=== PATIENT | male | born 1965 ===

== ENCOUNTER 2017-09-27 11:57 | Emergency (ER) | payer MEDICAID, OTHER ==
[2017-09-27 12:02] VITALS: BP 159/98; PULSE 61; RESP 16; TEMP 97.3; O2SAT 98
[2017-09-27 12:03] VITALS: BMI 29.5
[2017-09-27] MEDS: Sodium Chloride 0.9% 500 ML IV ONE (12:47)
[2017-09-27 13:09] LABS: SQUAMOUS EPITHIAL < 1 /hpf (0-5); URINE BILIRUBIN NEGATIVE (NEGATIVE); URINE BLOOD NEGATIVE (NEGATIVE); URINE CLARITY SLIGHTY-CLOUDY (Clear); URINE COLOR YELLOW (YELLOW); URINE GLUCOSE (UA) NEG (Normal); URINE LEUKOCYTE ESTERASE NEG Leu/uL (Negative); URINE NITRATE NEGATIVE (NEGATIVE); URINE PROTEIN 30 mg/dL (NEGATIVE); URINE UROBILINOGEN 0.2-1.0 mg/dL (0.2-1.0)
--- NOTE | 2017-09-27 13:11 | ED PDOC ---
HPI: Abdomen Time Seen by Provider: 09/27/17 12:12 Chief Complaint (Nursing): Abdominal Pain Chief Complaint (Provider): Abdominal Pain History Per: Patient History/Exam Limitations: no limitations Onset/Duration Of Symptoms: Hrs Current Symptoms Are (Timing): Still Present Additional Complaint(s): Devin Hernandez is a 51 year old male that presents to the ED with a chief complaint of generalized abdominal pain and nausea that began earlier today. Patient reports that he felt nauseous so he self induced vomiting x 4. Patient reports normal bowel movements and normal urination, and denies any fever, cough , chest pain, or shortness of breath. Past Medical History Reviewed: Historical Data, Nursing Documentation, Vital Signs Vital Signs: Last Vital Signs Temp 97.3 F L 09/27/17 12:02 Pulse 61 09/27/17 12:02 Resp 16 09/27/17 12:02 BP 159/98 H 09/27/17 12:02 Pulse Ox 98 09/27/17 15:41 - Medical History PMH: Hypercholesterolemia - Family History Family History: States: Unknown Family Hx - Home Medications Home Medications: Ambulatory Orders Medication Instructions Recorded Ciprofloxacin [Cipro] 500 mg PO BID #20 tab 09/27/17 Metronidazole [Flagyl] 500 mg PO TID #30 tab 09/27/17 - Allergies Allergies/Adverse Reactions: Allergies Allergy/AdvReac Type Severity Reaction Status Date / Time Penicillins Allergy RASH Verified 09/27/17 12:24 Review of Systems Constitutional: Negative for: Fever Cardiovascular: Negative for: Chest Pain Respiratory: Negative for: Cough, Shortness of Breath Gastrointestinal: Positive for: Vomiting, Abdominal Pain. Negative for: Diarrhea, Constipation Genitourinary Male: Negative for: Dysuria, Hematuria Musculoskeletal: Negative for: Neck Pain Physical Exam - Reviewed Nursing Documentation Reviewed: Yes Vital Signs Reviewed: Yes - Physical Exam Appears: Positive for: Non-toxic, No Acute Distress Head Exam: Positive for: ATRAUMATIC, NORMOCEPHALIC Skin: Positive for: Normal Color, Warm Eye Exam: Positive for: EOMI, Normal appearance, PERRL Cardiovascular/Chest: Positive for: Regular Rate, Rhythm. Negative for: Murmur Respiratory: Positive for: Normal Breath Sounds. Negative for: Wheezing Gastrointestinal/Abdominal: Positive for: Soft, Tenderness (scant LLQ) Back: Positive for: Normal Inspection. Negative for: L CVA Tenderness, R CVA Tenderness Neurologic/Psych: Positive for: Alert, Oriented. Negative for: Motor/Sensory Deficits - Laboratory Results Result Diagrams: 09/27/17 13:11 09/27/17 13:11 - ECG O2 Sat by Pulse Oximetry: 98 (RA) Pulse Ox Interpretation: Normal Medical Decision Making Medical Decision Making: Impression: Abdominal Pain/Vomiting Plan: * CT Scan Abd/Pelvis with PO and IV Contrast * CMP * CBC * Lipase * Magnesium * Phosphorous * Urinalysis * Toradol 30 mg IV * Zofran 4 mg IV * NaCl 500 mLs at 500 mLs/hr * Reevaluation CT Scan Abd/Pelvis with PO and IV Contrast FINDINGS: LOWER THORAX: Mild passive atelectasis both posterior lower lung hernandez. No effusion or basilar pneumothorax. There is a tiny hiatal hernia with slight wall thickening of the distal esophagus likely due to protrusion of gastric mucosa. Possibility of esophagitis not excluded. Heart size is borderline/mildly enlarged. No significant pericardial effusion identified. LIVER: . The liver is enlarged measuring nearly 20 cm in CC dimension. Mild to moderate fatty hepatic infiltration. No obvious hepatic mass collection or calcification. Portal and splenic veins are opacified. 19 cm GALLBLADDER AND BILE DUCTS: Gallbladder is physiologically distended. No evidence of intraluminal gallbladder calculi. PANCREAS: Visualized portions of the pancreas appear unremarkable without masses collections calcifications or significant ductal dilatation. . SPLEEN: Spleen is mildly enlarged measuring approximately 14.2 cm in AP dimension. No obvious splenic mass collection or calcification. ADRENALS: . There are no adrenal lesions seen. KIDNEYS AND URETERS: Kidneys demonstrate symmetric nephrograms. No evidence of nephrolithiasis or hydronephrosis. BLADDER: Urinary bladder is physiologically distended. No evidence of intraluminal urinary bladder calculi. REPRODUCTIVE: Prostate gland exhibits normal size with questionable punctate prostatic calcification. Seminal vesicles unremarkable. . . APPENDIX: Normal-appearing appendix best seen on axial image number [id number]. No periappendiceal inflammatory changes. . BOWEL: Relation of the bowel is somewhat limited due to the lack of oral contrast material. The stomach is incompletely distended which may account for slight thick-walled appearance. Visualized loops of small bowel exhibit normal contour and caliber. No evidence of acute mechanical small bowel obstruction. Moderately large amount of stool seen within the cecum and ascending colon suggesting mild localized fecal retention/constipation. Scattered colonic diverticula seen along the distal descending and sigmoid colon. Minor wall thickening short segment of the distal descending/ sigmoid colon nonspecific. Findings could represent mild localized acute diverticulitis. PERITONEUM: Unremarkable. No fluid collection. No free air. Small fat containing umbilical hernia. LYMPH NODES: Unremarkable. No enlarged lymph nodes. VASCULATURE: Unremarkable. No aortic aneurysm. BONES: Minor multilevel degenerative spondylosis of the lower thoracic and lumbar spine. There are no acute compression fractures no retropulsed fragments. . Mild dextroscoliosis. OTHER FINDINGS: None. IMPRESSION: Hepatomegaly with mild fatty hepatic infiltration. Mild splenomegaly. Findings suggest localized constipation involving the cecum and ascending colon. Diverticulosis with minor wall thickening short-segment distal descending/ sigmoid colon ; findings could represent mild localized acute diverticulitis. No evidence of acute appendicitis. See above discussion for additional details and findings. Findings discussed with Dr Ta at 3:25pm Scribe Attestation: Documented by Kasey Subramanian, acting as a scribe for Christine Ta MD. Provider Scribe Attestation: All medical record entries made by the Scribe were at my direction and personally dictated by me. I have reviewed the chart and agree that the record accurately reflects my personal performance of the history, physical exam, medical decision making, and the department course for this patient. I have also personally directed, reviewed, and agree with the discharge instructions and disposition. Used spray mixer- through [facility], to explain to patient his diagnosis. He reports that he feels better and wants to go home. He has never had any non- self induced vomiting. He is afebrile with normal labs. He reports that he wants to try outpatient antibiotics and will return with any worsening symptoms. Disposition - Clinical Impression Clinical Impression: Diverticulitis - Disposition Referrals: [facility] [Outside] Disposition: Routine/Home Disposition Time: 15:34 Condition: GOOD Additional Instructions: Follow-up with PMD within 2 days. Take full course of antibiotics. Return to ED immediately with any worsening symptoms. Prescriptions: Ciprofloxacin [Cipro] 500 mg PO BID #20 tab Metronidazole [Flagyl] 500 mg PO TID #30 tab Instructions: Diverticulitis (ED) Forms: [facility] (Nigerian) Print Language: SAMMARINESE
[2017-09-27 13:20] LABS: BASO % 0.7 % (0.0-2.0); EOS # 0.2 K/uL (0.0-0.7); EOS % 2.7 % (0.0-4.0); HEMOGLOBIN 15.2 g/dL (12.0-18.0); LYMPH # 2.2 K/uL (1.0-4.3); MEAN CELL VOLUME 83.5 fl (80.0-94.0); MEAN CORPUSCULAR HEMOGLOBIN 28.7 pg (27.0-31.0); MEAN CORPUSCULAR HGB CONC 34.3 g/dL (33.0-37.0); MEAN PLATELET VOLUME 7.4 fl (7.2-11.7); MONO # 0.5 K/uL (0.0-0.8); MONO % 7.8 % (0.0-10.0); NEUT # 3.6 K/uL (1.8-7.0); NEUT % 55.8 % (50.0-75.0); NRBC % 0.3 % (0.0-0.0); RBC 5.31 Mil/uL (4.40-5.90); RED CELL DISTRIBUTION WIDTH 12.5 % (11.5-14.5); WHITE BLOOD COUNT 6.5 K/uL (4.8-10.8)
[2017-09-27 13:42] LABS: ALB/GLOB RATIO 1.2 (1.0-2.1); ALBUMIN 4.2 g/dL (3.5-5.0); ALT/SGPT 66 U/L (21-72); AST/SGOT 39 U/L (17-59); BLOOD UREA NITROGEN 16 mg/dl (9-20); CALCIUM 9.3 mg/dL (8.4-10.2); GFR AFRICAN-AMERICAN > 60; GFR NON-AFRICAN AMERICAN > 60; LIPASE 70 U/L (23-300); MAGNESIUM 1.7 MG/DL (1.6-2.3)
[2017-09-27] MEDS ORDERED: Sodium Chloride 0.9% 50 ML IV ONE (14:08)
[2017-09-27] MEDS ORDERED: Iohexol 300 100 ML IJ ONE (14:08)
--- NOTE | 2017-09-27 15:29 | CT ---
PROCEDURE: CT scan abdomen and pelvis dated 09/27/2017 HISTORY: Diffuse abdominal pain COMPARISON: None. TECHNIQUE: Contiguous axial images of the abdomen and pelvis performed the following intravenous injection of approximately 95 cc Omnipaque 300 en. Coronal and Sagittal reformats generated. This CT exam was performed using one or more of the following dose reduction techniques: Automated exposure control, adjustment of the mA and/or kV according to patient size, and/or use of iterative reconstruction technique. Radiation dose: Total exam DLP = 979.98 mGy-cm. FINDINGS: LOWER THORAX: Mild passive atelectasis both posterior lower lung hernandez. No effusion or basilar pneumothorax. There is a tiny hiatal hernia with slight wall thickening of the distal esophagus likely due to protrusion of gastric mucosa. Possibility of esophagitis not excluded. Heart size is borderline/mildly enlarged. No significant pericardial effusion identified. LIVER: . The liver is enlarged measuring nearly 20 cm in CC dimension. Mild to moderate fatty hepatic infiltration. No obvious hepatic mass collection or calcification. Portal and splenic veins are opacified. 19 cm GALLBLADDER AND BILE DUCTS: Gallbladder is physiologically distended. No evidence of intraluminal gallbladder calculi. PANCREAS: Visualized portions of the pancreas appear unremarkable without masses collections calcifications or significant ductal dilatation. . SPLEEN: Spleen is mildly enlarged measuring approximately 14.2 cm in AP dimension. No obvious splenic mass collection or calcification. ADRENALS: . There are no adrenal lesions seen. KIDNEYS AND URETERS: Kidneys demonstrate symmetric nephrograms. No evidence of nephrolithiasis or hydronephrosis. BLADDER: Urinary bladder is physiologically distended. No evidence of intraluminal urinary bladder calculi. REPRODUCTIVE: Prostate gland exhibits normal size with questionable punctate prostatic calcification. Seminal vesicles unremarkable. . . APPENDIX: Normal-appearing appendix best seen on axial image number [id number]. No periappendiceal inflammatory changes. . BOWEL: Relation of the bowel is somewhat limited due to the lack of oral contrast material. The stomach is incompletely distended which may account for slight thick-walled appearance. Visualized loops of small bowel exhibit normal contour and caliber. No evidence of acute mechanical small bowel obstruction. Moderately large amount of stool seen within the cecum and ascending colon suggesting mild localized fecal retention/constipation. Scattered colonic diverticula seen along the distal descending and sigmoid colon. Minor wall thickening short segment of the distal descending/ sigmoid colon nonspecific. Findings could represent mild localized acute diverticulitis. PERITONEUM: Unremarkable. No fluid collection. No free air. Small fat containing umbilical hernia. LYMPH NODES: Unremarkable. No enlarged lymph nodes. VASCULATURE: Unremarkable. No aortic aneurysm. BONES: Minor multilevel degenerative spondylosis of the lower thoracic and lumbar spine. There are no acute compression fractures no retropulsed fragments. . Mild dextroscoliosis. OTHER FINDINGS: None. IMPRESSION: Hepatomegaly with mild fatty hepatic infiltration. Mild splenomegaly. Findings suggest localized constipation involving the cecum and ascending colon. Diverticulosis with minor wall thickening short-segment distal descending/sigmoid colon ; findings could represent mild localized acute diverticulitis. No evidence of acute appendicitis. See above discussion for additional details and findings. Findings discussed with Dr Ta at 3:25pm
== END 2017-09-27 16:24 | disposition home or self-care (01) ==
LOC: H.ER 11:57
DX: K57.92 Diverticulitis of intestine, part unspecified, without perforation or abscess without bleeding (principal); E78.00 Pure hypercholesterolemia, unspecified; Z88.0 Allergy status to penicillin
CPT/HCPCS: 74177; 80053; 81003; 83690; 83735; 84100; 85025; 96374; 96375; 99282; J1885; J2405; J7040; Q9967

== ENCOUNTER 2018-04-10 22:35 | Emergency (ER) | payer MEDICAID, OTHER ==
[2018-04-10 22:35] VITALS: BMI 29.5
[2018-04-10 22:50] VITALS: RESP 16
[2018-04-10] MEDS ORDERED: Iohexol 240 (50 ml) PO ONE (23:30)
[2018-04-10] MEDS ORDERED: Sodium Chloride 0.9% 1,000 ML IV STA (23:30)
--- NOTE | 2018-04-10 23:33 | ED PDOC ---
HPI: Abdomen Time Seen by Provider: 04/10/18 22:51 Chief Complaint (Nursing): Abdominal Pain Chief Complaint (Provider): abdominal pain History Per: Patient History/Exam Limitations: no limitations Onset/Duration Of Symptoms: Hrs Current Symptoms Are (Timing): Still Present Location Of Pain/Discomfort: RUQ, Epigastric, LUQ Quality Of Discomfort: Cramping, "Pain" Associated Symptoms: Diarrhea Additional Complaint(s): 52 y/o male presents for evaluation of severe upper abdominal pain x 5 hours. Associated diarrhea x 3 days. Patient evaluated by his PMD yesterday and was prescribed Bentyl which is not helping with pain. Denies fever, nausae/vomiting , chest pain, shortness of breath, palpitations, urinary symptoms, recent travel , sick contacts. Past Medical History Reviewed: Historical Data, Nursing Documentation, Vital Signs Vital Signs: Last Vital Signs Temp 97.6 F 04/10/18 22:47 Pulse 62 04/10/18 22:47 Resp 16 04/10/18 22:47 BP 163/96 H 04/10/18 22:47 Pulse Ox 98 04/10/18 23:33 - Medical History PMH: Hypercholesterolemia - Family History Family History: States: Unknown Family Hx - Home Medications Home Medications: Ambulatory Orders Medication Instructions Recorded Ciprofloxacin [Cipro] 500 mg PO BID #20 tab 09/27/17 Metronidazole [Flagyl] 500 mg PO TID #30 tab 09/27/17 Ciprofloxacin HCl [Cipro] 500 mg PO BID #19 tab 04/11/18 Metronidazole [Flagyl] 500 mg PO TID #29 tablet 04/11/18 Naproxen [Naprosyn] 500 mg PO Q12 PRN #20 tablet 04/11/18 - Allergies Allergies/Adverse Reactions: Allergies Allergy/AdvReac Type Severity Reaction Status Date / Time Penicillins Allergy RASH Verified 09/27/17 12:24 Review of Systems ROS Statement: Except As Marked, All Systems Reviewed And Found Negative Gastrointestinal: Positive for: Abdominal Pain, Diarrhea Physical Exam - Reviewed Nursing Documentation Reviewed: Yes Vital Signs Reviewed: Yes - Physical Exam Appears: Positive for: Well, Non-toxic, No Acute Distress Head Exam: Positive for: ATRAUMATIC, NORMAL INSPECTION, NORMOCEPHALIC Skin: Positive for: Normal Color Eye Exam: Positive for: Normal appearance ENT: Positive for: Normal ENT Inspection Cardiovascular/Chest: Positive for: Regular Rate, Rhythm Respiratory: Positive for: Normal Breath Sounds Gastrointestinal/Abdominal: Positive for: Bowel Sounds, Soft, Tenderness ( diffuse upper abdominal tenderness) Back: Positive for: Normal Inspection Extremity: Positive for: Normal ROM Neurologic/Psych: Positive for: Alert, Oriented - Laboratory Results Result Diagrams: 04/11/18 00:28 04/11/18 00:28 - ECG O2 Sat by Pulse Oximetry: 98 - Progress ED Course And Treament: Initial Impression: abdominal pain, diarrhea Plan: cbc cmp lipase urine ct abd/pelvis po/iv contrast toradol fluids EXAM: CT Abdomen and Pelvis With Intravenous Contrast EXAM DATE/TIME: 04/10/2018 11:30 PM CLINICAL HISTORY: 52 years old, male; Pain; Abdominal pain; Localized; Upper; Additional info: Upper abd pain, diarrhea TECHNIQUE: Axial computed tomography images of the abdomen and pelvis with intravenous contrast. All CT scans at this facility use at least one of these dose optimization techniques: automated exposure control; mA and/or kV adjustment per patient size (includes targeted exams where dose is matched to clinical indication); or iterative reconstruction. CONTRAST: 95 ml of [id number] administered intravenously. COMPARISON: No relevant prior studies available. FINDINGS: Lower thorax: Mild dependent atelectatic changes in the lungs. ABDOMEN: Liver: Fatty liver. Gallbladder and bile ducts: Normal. No calcified stones. No ductal dilation. Pancreas: Normal. No ductal dilation. Spleen: The spleen is enlarged measuring up to 14.5 cm in AP dimension. Adrenals: Normal. No mass. Kidneys and ureters: Normal. No hydronephrosis. Stomach and bowel: Mild thickening of the sigmoid colon may be reflective of colitis. Appendix: No evidence of appendicitis. PELVIS: Bladder: Unremarkable as visualized. Reproductive: Unremarkable as visualized. ABDOMEN and PELVIS: Intraperitoneal space: Normal. No free air. No significant fluid collection. Bones/joints: No acute fracture. No dislocation. Soft tissues: Unremarkable. Vasculature: Normal. No abdominal aortic aneurysm. Lymph nodes: Normal. No enlarged lymph nodes. IMPRESSION: 1. Mild thickening of the sigmoid colon may be reflective of colitis. 2. Fatty liver. 3. The spleen is enlarged measuring up to 14.5 cm in AP dimension. Patient evaluated by ED attending Dr. Tong; patient without LUQ tenderness, likely incidental finding of splenomegaly Patient educated on findings, discharged with rx cipro (dose given in ED), flagyl (dose given in ED), naproxen Advised to continue Bentyl Rice diet. Fluids Patient has appt to see GI next week. Advised to f/up as scheduled Return precautions given Disposition - Clinical Impression Clinical Impression: Colitis, Splenomegaly - Patient ED Disposition Is Patient to be Admitted: No Counseled Patient/Family Regarding: Studies Performed, Diagnosis, Need For Followup, Rx Given - Disposition Disposition: Routine/Home Disposition Time: 04:58 Condition: IMPROVED Prescriptions: Ciprofloxacin HCl [Cipro] 500 mg PO BID #19 tab Metronidazole [Flagyl] 500 mg PO TID #29 tablet Naproxen [Naprosyn] 500 mg PO Q12 PRN #20 tablet PRN Reason: Pain, Moderate (4-7) Instructions: Diarrhea in Adolescents and Adults, Acute Abdomen (Belly Pain) Forms: [facility] (Czech) Print Language: HONG KONGER
[2018-04-11] MEDS ORDERED: Iohexol 240 (50 ml) ONE (00:12)
[2018-04-11 00:32] LABS: BASO # 0.1 K/uL (0.0-0.2); BASO % 0.7 % (0.0-2.0); EOS # 0.4 K/uL (0.0-0.7); EOS % 4.9 % (0.0-4.0); HEMOGLOBIN 15.3 g/dL (12.0-18.0); LYMPH # 2.6 K/uL (1.0-4.3); LYMPH % 35.9 % (20.0-40.0); MEAN CELL VOLUME 84.4 fl (80.0-94.0); MEAN CORPUSCULAR HEMOGLOBIN 29.1 pg (27.0-31.0); MEAN CORPUSCULAR HGB CONC 34.4 g/dL (33.0-37.0); MEAN PLATELET VOLUME 6.9 fl (7.2-11.7); MONO # 0.8 K/uL (0.0-0.8); MONO % 10.8 % (0.0-10.0); NEUT # 3.4 K/uL (1.8-7.0); NEUT % 47.7 % (50.0-75.0); RBC 5.27 Mil/uL (4.40-5.90); RED CELL DISTRIBUTION WIDTH 12.7 % (11.5-14.5); WHITE BLOOD COUNT 7.2 K/uL (4.8-10.8)
[2018-04-11 00:36] LABS: URINE BILIRUBIN NEGATIVE (NEGATIVE); URINE BLOOD NEGATIVE (NEGATIVE); URINE CLARITY CLEAR (Clear); URINE COLOR STRAW (YELLOW); URINE GLUCOSE (UA) NEG (Normal); URINE LEUKOCYTE ESTERASE NEG Leu/uL (Negative); URINE PROTEIN NEGATIVE (NEGATIVE); URINE UROBILINOGEN 0.2-1.0 mg/dL (0.2-1.0)
[2018-04-11 00:43] LABS: ALB/GLOB RATIO 1.2 (1.0-2.1); ALBUMIN 4.3 g/dL (3.5-5.0); ALT/SGPT 52 U/L (21-72); AST/SGOT 34 U/L (17-59); BLOOD UREA NITROGEN 13 mg/dl (9-20); CALCIUM 9.2 mg/dL (8.4-10.2); GFR AFRICAN-AMERICAN > 60; GFR NON-AFRICAN AMERICAN > 60; LIPASE 90 U/L (23-300)
[2018-04-11] MEDS ORDERED: Sodium Chloride 0.9% 50 ML IV ONE (02:30)
[2018-04-11] MEDS ORDERED: Iohexol 300 100 ML IJ ONE (02:30)
[2018-04-11 05:57] VITALS: BP 125/81; PULSE 56; TEMP 98.6; O2SAT 97
--- NOTE | 2018-04-11 11:06 | CT ---
Date of service: 04/11/2018 PROCEDURE: CT Abdomen and Pelvis with contrast HISTORY: upper abd pain, diarrhea COMPARISON: CT scan of the abdomen pelvis dated 09/17/2017. TECHNIQUE: Contrast dose: 90 mL Omnipaque 300 Radiation dose: Total exam DLP = 819.2 mGy-cm. This CT exam was performed using one or more of the following dose reduction techniques: Automated exposure control, adjustment of the mA and/or kV according to patient size, and/or use of iterative reconstruction technique. FINDINGS: LOWER THORAX: Unremarkable. LIVER: Hepatic steatosis with heterogeneous attenuation involving the right hepatic, likely related to transient hepatic attenuation differences. No gross lesion or ductal dilatation. GALLBLADDER AND BILE DUCTS: Unremarkable. PANCREAS: Unremarkable. No gross lesion or ductal dilatation. SPLEEN: Unremarkable. ADRENALS: Unremarkable. No mass. KIDNEYS AND URETERS: Unremarkable. No hydronephrosis. No solid mass. VASCULATURE: Unremarkable. No aortic aneurysm. BOWEL: Unremarkable. No obstruction. No gross mural thickening. APPENDIX: Normal appendix. PERITONEUM: Tiny fat containing umbilical hernia. Small fat containing right inguinal hernia. No free fluid. No free air. LYMPH NODES: Unremarkable. No enlarged lymph nodes. BLADDER: Unremarkable. REPRODUCTIVE: Unremarkable. BONES: No acute fracture. OTHER FINDINGS: None. IMPRESSION: No acute abdominal pelvic pathology. Hepatic steatosis with likely transient hepatic attenuation differences. Additional findings as above.
--- NOTE | 2018-04-14 11:41 | CARD ---
APPROVED REPORT Date of service: 04/10/2018 EKG Measurement Heart [id number] <Conclusion> Normal sinus rhythm Normal ECG
== END 2018-04-11 05:59 | disposition home or self-care (01) ==
LOC: H.ER 22:35
DX: K52.9 Noninfective gastroenteritis and colitis, unspecified (principal); R16.1 Splenomegaly, not elsewhere classified; E78.00 Pure hypercholesterolemia, unspecified; K76.0 Fatty (change of) liver, not elsewhere classified; Z88.0 Allergy status to penicillin
CPT/HCPCS: 74177; 80053; 81003; 83690; 85025; 93005; 96361; 96374; 96375; 99283; J1885; J7030; Q9966; Q9967

== ENCOUNTER 2018-04-29 03:49 | Inpatient (IN) | payer MEDICAID ==
[2018-04-29 03:49] VITALS: BMI 29.5
[2018-04-29] MEDS ORDERED: Simethicone 80 mg Chewtab PO STA (05:15)
[2018-04-29] MEDS ORDERED: Sodium Chloride 0.9% 1,000 ML IV STA (05:15)
--- NOTE | 2018-04-29 05:38 | ED PDOC ---
HPI: Abdomen Time Seen by Provider: 04/29/18 05:10 Chief Complaint (Nursing): Abdominal Pain Chief Complaint (Provider): Abdominal Pain History Per: Patient History/Exam Limitations: no limitations Additional Complaint(s): Patient is a 52 y/o male who was recently diagnosed with diverticulitis who presents to the ED complaining of abdominal pain with associated episodes of vomiting and diarrhea, both non-bloody. Patient reports that he had a colonoscopy yesterday at [facility] and his results were negative. However , patient states that since the procedure he has been feeling more and more bloated. He denies any fever or urinary symptoms. Past Medical History Reviewed: Historical Data, Nursing Documentation, Vital Signs Vital Signs: Last Vital Signs Temp 99 F 04/29/18 04:07 Pulse 69 04/29/18 04:07 Resp 14 04/29/18 04:07 BP 150/91 H 04/29/18 04:07 Pulse Ox 99 04/29/18 05:42 - Medical History PMH: Diverticulitis, Hypercholesterolemia - Surgical History Other surgeries: colonoscopy - Family History Family History: States: Unknown Family Hx - Home Medications Home Medications: Ambulatory Orders Medication Instructions Recorded Ciprofloxacin [Cipro] 500 mg PO BID #20 tab 09/27/17 Metronidazole [Flagyl] 500 mg PO TID #30 tab 09/27/17 Ciprofloxacin HCl [Cipro] 500 mg PO BID #19 tab 04/11/18 Metronidazole [Flagyl] 500 mg PO TID #29 tablet 04/11/18 Naproxen [Naprosyn] 500 mg PO Q12 PRN #20 tablet 04/11/18 - Allergies Allergies/Adverse Reactions: Allergies Allergy/AdvReac Type Severity Reaction Status Date / Time amoxicillin Allergy RASH Verified 04/29/18 04:07 Penicillins Allergy RASH Verified 04/29/18 04:07 Review of Systems ROS Statement: Except As Marked, All Systems Reviewed And Found Negative Constitutional: Negative for: Fever Gastrointestinal: Positive for: Vomiting, Abdominal Pain, Diarrhea Genitourinary Male: Negative for: Dysuria, Frequency, Incontinence Physical Exam - Reviewed Nursing Documentation Reviewed: Yes Vital Signs Reviewed: Yes - Physical Exam Appears: Positive for: Non-toxic, No Acute Distress Head Exam: Positive for: ATRAUMATIC, NORMOCEPHALIC Skin: Positive for: Normal Color, Warm, Dry Eye Exam: Positive for: EOMI, Normal appearance, PERRL Neck: Positive for: Normal, Painless ROM, Supple Cardiovascular/Chest: Positive for: Regular Rate, Rhythm. Negative for: Murmur Respiratory: Positive for: Normal Breath Sounds. Negative for: Respiratory Distress Gastrointestinal/Abdominal: Positive for: Soft, Tenderness (diffuse tenderness) , Distended. Negative for: Guarding, Rebound Back: Positive for: Normal Inspection. Negative for: L CVA Tenderness, R CVA Tenderness Extremity: Positive for: Normal ROM. Negative for: Pedal Edema, Deformity Neurologic/Psych: Positive for: Alert, Oriented. Negative for: Motor/Sensory Deficits - Laboratory Results Result Diagrams: 04/29/18 05:32 04/29/18 05:32 - ECG O2 Sat by Pulse Oximetry: 99 (RA) Pulse Ox Interpretation: Normal Medical Decision Making Medical Decision Making: Time: 05:14 A/P: 52 y/o male with history of recent diverticulitis and colonoscopy presenting with abdominal pain. Patient is not in acute distress but uncomfortably appearing. Concerned for possible gas vs complication of colonoscopy vs worsening diverticulitis among other pathologies. --CMP --Lactic acid --Lipase --CBC with differential --RAD - obstructive series --Mylicon 80 mg PO --Urinalysis 0700 Patient states he feels the same. Will order CT A/P with PO and IV contrast, toradol ordered. Will endorse to Dr. Hughes pending CT and re-eval. ----- Scribe Attestation: Documented by Landon Redman, acting as a scribe for Ken Tong MD. Provider Scribe Attestation: All medical record entries made by the Scribe were at my direction and personally dictated by me. I have reviewed the chart and agree that the record accurately reflects my personal performance of the history, physical exam, medical decision making, and the department course for this patient. I have also personally directed, reviewed, and agree with the discharge instructions and disposition. Disposition - Clinical Impression Clinical Impression: Abdominal pain - Patient ED Disposition Is Patient to be Admitted: Transfer of Care - Disposition Disposition: Transfer of Care Disposition Time: 07:00 Condition: STABLE Forms: [facility] (Haitian) Patient Signed Over To: Abhay Hughes Handoff Comments: pending CT and re-eval
[2018-04-29 06:08] LABS: BASO % 0.7 % (0.0-2.0); EOS # 0.2 K/uL (0.0-0.7); EOS % 3.4 % (0.0-4.0); HEMOGLOBIN 15.3 g/dL (12.0-18.0); LYMPH # 1.8 K/uL (1.0-4.3); LYMPH % 24.9 % (20.0-40.0); MEAN CELL VOLUME 85.8 fl (80.0-94.0); MEAN CORPUSCULAR HEMOGLOBIN 29.8 pg (27.0-31.0); MEAN CORPUSCULAR HGB CONC 34.8 g/dL (33.0-37.0); MEAN PLATELET VOLUME 7.2 fl (7.2-11.7); MONO # 0.6 K/uL (0.0-0.8); MONO % 8.1 % (0.0-10.0); NEUT # 4.5 K/uL (1.8-7.0); NEUT % 62.9 % (50.0-75.0); NRBC % 0.1 % (0.0-0.0); RBC 5.12 Mil/uL (4.40-5.90); RED CELL DISTRIBUTION WIDTH 12.9 % (11.5-14.5); WHITE BLOOD COUNT 7.2 K/uL (4.8-10.8)
[2018-04-29 06:22] LABS: ALB/GLOB RATIO 1.2 (1.0-2.1); ALBUMIN 4.1 g/dL (3.5-5.0); ALT/SGPT 62 U/L (21-72); AST/SGOT 44 U/L (17-59); BLOOD UREA NITROGEN 15 mg/dl (9-20); CALCIUM 9.3 mg/dL (8.4-10.2); GFR AFRICAN-AMERICAN > 60; GFR NON-AFRICAN AMERICAN > 60; LIPASE 68 U/L (23-300)
[2018-04-29] MEDS ORDERED: Iohexol 240 (50 ml) PO ONE (06:42)
[2018-04-29] MEDS ORDERED: Iohexol 240 (50 ml) ONE (06:58)
--- NOTE | 2018-04-29 07:27 | ED PDOC ---
- Laboratory Results Result Diagrams: 04/29/18 05:32 04/29/18 05:32 Interpretation Of Abn Labs: no acute - ECG O2 Sat by Pulse Oximetry: 99 (RA) Pulse Ox Interpretation: Normal - CT Scan/US ct Other Rad Studies (CT/US): Read By Radiologist Other Rad Interpretation: gall bladder thickening and fluid around; colitis US Other Rad Studies (CT/US): Read By Radiologist Other Rad Interpretation: cholecystitis - Progress ED Course And Treament: 1230: Stable. AAOx3. Will need admit. Surgery aware and seeing pt. Spoke with Dr. Funes. Will admit. Medical Decision Making Medical Decision Makin:00 --52 year old male signed out pending CT Abd & Pelvis and reevaluation; had colonoscopy performed 2 days ago. 09:57 CT Abd Pelvis FINDINGS: LOWER THORAX: There is dependent atelectasis in the lung bases. There is a tiny calcified granuloma in the right lower lobe. LIVER: There is mild hepatomegaly and diffuse fatty liver. No gross lesion or ductal dilatation. GALLBLADDER AND BILE DUCTS: The gallbladder is distended with wall thickening and pericholecystic fluid. No calcified gallstones. PANCREAS: The pancreas is normal in size with homogeneous enhancement. No gross lesion or ductal dilatation. SPLEEN: Mild splenomegaly. ADRENALS: No discrete nodule. KIDNEYS AND URETERS: Normal in size with homogeneous enhancement. No hydronephrosis. No solid mass. VASCULATURE: No aortic aneurysm. BOWEL: The small bowel loops are normal in caliber. The ascending and transverse colon is normal in appearance. There is scattered left colonic diverticulosis. There is apparent mild mural thickening in the descending and sigmoid colon. No bowel dilatation or obstruction. APPENDIX: Normal appendix. PERITONEUM: No free fluid. No free air. LYMPH NODES: No enlarged lymph nodes. BLADDER: Over distended and grossly normal in appearance. REPRODUCTIVE: The prostate gland is normal in size. BONES: No acute fracture. Mild multilevel degenerative disc disease. OTHER FINDINGS: There are bilateral small fat containing inguinal hernias. IMPRESSION: 1. Distended gallbladder with wall thickening and mild pericholecystic fluid without evidence for calcified gallstones. Findings could represent acute cholecystitis in the appropriate clinical setting. Please correlate with clinical symptoms and if clinically indicated with right upper quadrant ultrasound. 2. Scattered left colonic diverticulosis. Apparent mild mural thickening in the descending and sigmoid colon is nonspecific and could be related to underdistention however early nonspecific infectious/inflammatory colitis cannot be excluded. Clinical follow-up is advised. 3. Mild hepatosplenomegaly and fatty liver. Scribe Attestation: Documented by Sarah Robbins, acting as a scribe for Abhay Hughes MD Provider Scribe Attestation: All medical record entries made by the Scribe were at my direction and personally dictated by me. I have reviewed the chart and agree that the record accurately reflects my personal performance of the history, physical exam, medical decision making, and the department course for this patient. I have also personally directed, reviewed, and agree with the discharge instructions and disposition. Disposition - Clinical Impression Clinical Impression: Colitis, Cholecystitis - POA Present On Arrival: None - Disposition Disposition: Admitted as In-Patient Disposition Time: 11:00 Condition: FAIR
[2018-04-29 08:31] LABS: SQUAMOUS EPITHIAL < 1 /hpf (0-5); URINE BILIRUBIN NEGATIVE (NEGATIVE); URINE BLOOD NEGATIVE (NEGATIVE); URINE CLARITY CLEAR (Clear); URINE COLOR YELLOW (YELLOW); URINE GLUCOSE (UA) NEG (Normal); URINE LEUKOCYTE ESTERASE NEG Leu/uL (Negative); URINE PROTEIN NEGATIVE (NEGATIVE); URINE UROBILINOGEN 0.2-1.0 mg/dL (0.2-1.0)
[2018-04-29] MEDS ORDERED: Sodium Chloride 0.9% 50 ML IV ONE (09:04)
[2018-04-29] MEDS ORDERED: Iohexol 300 100 ML IJ ONE (09:04)
--- NOTE | 2018-04-29 09:58 | CT ---
Date of service: 04/29/2018 PROCEDURE: CT Abdomen and Pelvis with contrast HISTORY: Abdominal pain after colonoscopy COMPARISON: 04/11/2018. TECHNIQUE: CT scan of the abdomen and pelvis was performed after administration of intravenous contrast. Oral contrast was administered. Coronal and sagittal reformatted images were obtained. Contrast dose: 95 mL Omnipaque 300 Radiation dose: Total exam DLP = 742.84 mGy-cm. This CT exam was performed using one or more of the following dose reduction techniques: Automated exposure control, adjustment of the mA and/or kV according to patient size, and/or use of iterative reconstruction technique. FINDINGS: LOWER THORAX: There is dependent atelectasis in the lung bases. There is a tiny calcified granuloma in the right lower lobe. LIVER: There is mild hepatomegaly and diffuse fatty liver. No gross lesion or ductal dilatation. GALLBLADDER AND BILE DUCTS: The gallbladder is distended with wall thickening and pericholecystic fluid. No calcified gallstones. PANCREAS: The pancreas is normal in size with homogeneous enhancement. No gross lesion or ductal dilatation. SPLEEN: Mild splenomegaly. ADRENALS: No discrete nodule. KIDNEYS AND URETERS: Normal in size with homogeneous enhancement. No hydronephrosis. No solid mass. VASCULATURE: No aortic aneurysm. BOWEL: The small bowel loops are normal in caliber. The ascending and transverse colon is normal in appearance. There is scattered left colonic diverticulosis. There is apparent mild mural thickening in the descending and sigmoid colon. No bowel dilatation or obstruction. APPENDIX: Normal appendix. PERITONEUM: No free fluid. No free air. LYMPH NODES: No enlarged lymph nodes. BLADDER: Over distended and grossly normal in appearance. REPRODUCTIVE: The prostate gland is normal in size. BONES: No acute fracture. Mild multilevel degenerative disc disease. OTHER FINDINGS: There are bilateral small fat containing inguinal hernias. IMPRESSION: 1. Distended gallbladder with wall thickening and mild pericholecystic fluid without evidence for calcified gallstones. Findings could represent acute cholecystitis in the appropriate clinical setting. Please correlate with clinical symptoms and if clinically indicated with right upper quadrant ultrasound. 2. Scattered left colonic diverticulosis. Apparent mild mural thickening in the descending and sigmoid colon is nonspecific and could be related to underdistention however early nonspecific infectious/inflammatory colitis cannot be excluded. Clinical follow-up is advised. 3. Mild hepatosplenomegaly and fatty liver.
--- NOTE | 2018-04-29 10:55 | RAD ---
Date of service: 04/29/2018 PROCEDURE: Radiographs of the chest and abdomen (obstructive series) HISTORY: colonoscopy yesterday, abd pain COMPARISON: Abdomen pelvis CT examination 04/11/2018. TECHNIQUE: AP radiograph of the chest, with upright and supine radiographs of the abdomen. FINDINGS: CHEST: Lungs: No acute pulmonary disease appreciated bilaterally. Cardiovascular: Normal size heart. No pulmonary vascular congestion. Pleura: No pleural fluid. No pneumothorax. Other findings: None. ABDOMEN AND PELVIS: Bowel: Unremarkable bowel gas pattern. No evidence of mechanical obstruction. Limited fecal loading is seen in the interval though diminished compared to the prior CT 04/11/2018. Free air: None. Bones: Unremarkable. Other findings: None. IMPRESSION: Unremarkable radiographs of chest and abdomen. No radiographic evidence of mechanical bowel obstruction.
--- NOTE | 2018-04-29 12:20 | US ---
Date of service: 04/29/2018 HISTORY: gall bladder eval; pain COMPARISON: None. TECHNIQUE: Sonographic evaluation of the right upper quadrant of the abdomen. FINDINGS: LIVER: Measures 15.8 cm in length. There is diffuse increased echogenicity of the liver parenchyma. No mass. No intrahepatic bile duct dilatation. GALLBLADDER: The gallbladder is distended. There are multiple gallstones and mild pericholecystic fluid along wall. COMMON BILE DUCT: Measures 4.0 mm. No stones. No dilatation. PANCREAS: Obscured by bowel gas. No mass. No ductal dilatation. RIGHT KIDNEY: Measures 11.1 cm in length. Normal echogenicity. No calculus, mass, or hydronephrosis. AORTA: No aneurysmal dilatation. IVC: Unremarkable. OTHER FINDINGS: None . IMPRESSION: Distended gallbladder with gallstones and mild pericholecystic fluid in the appropriate clinical setting could represent acute calculus cholecystitis. Diffuse increased echogenicity in the liver may reflect hepatic steatosis however parenchymal infectious/ inflammatory etiologies cannot be entirely excluded. Clinical and laboratory correlation is advised.
[2018-04-29] MEDS ORDERED: metroNIDAZOLE 500mg/100ml NS 100 ML IV STA (12:32)
[2018-04-29] MEDS ORDERED: cefTRIAXone (Rocephin) 1 gm Inj IV ONE (12:33)
[2018-04-29] MEDS ORDERED: metroNIDAZOLE 500mg/100ml NS 100 ML IVPB ONE (12:58)
[2018-04-29] MEDS ORDERED: cefTRIAXone (Rocephin) 1 gm Inj ONE (12:58)
--- NOTE | 2018-04-29 13:26 | CP.PCM.CON ---
History of Present Illness - History of Present Illness History of Present Illness: General surgery consult note for Dr. Matthew Castillo, PGY-2 Pt S & E at bedside at 1250 52M w/PMH sig for colitis/diverticulitis consulted for cholecystitis. Pt reports colonoscopy yesterday at [place] with some blood in his diarrhea post procedure. Pt had colonoscopy for 1.5-2 mo hx of non bloody diarrhea. Pt reports after resuming diet post procedure, he started to have abdominal pain and bloating. Ab pain radiates diffusely over abdomen, was severe, constant, but alleviated by pain medication. Pt reports passing gas once today, has a history of difficulty passing gas. Denies F & C, CP, SOB, N & V, headache, other complaints. Reports hunger. In ED- LFTs WNL, afebrile, no leukocytosis, T bili WNL. CT scan with distended GB w/wall thickening & mild pericholecystic fluid w/o evidence of calcified gallstones, scattered left colonic diverticulosis. Ab U/S w/distended with gallstones & mild pericholecystic fluid. Lactic acid 1.5. PMH: Diverticulitis, hx of colitis, hiatal hernia, R inguinal hernia PSH: Denies All: PCN SH: Denies tobacco, ETOH or illicit drug use FH: Denies FH of gallstones or gallbladder problems Review of Systems - Review of Systems All systems: reviewed and no additional remarkable complaints except - Constitutional Constitutional: absent: Chills, Fever - EENT Ears: absent: Dizziness Nose/Mouth/Throat: absent: Sore Throat - Cardiovascular Cardiovascular: absent: Chest Pain - Respiratory Respiratory: absent: Cough - Gastrointestinal Gastrointestinal: Abdominal Pain, Bloating, Diarrhea. absent: Constipation, Hematemesis, Hematochezia, Nausea, Vomiting - Genitourinary Genitourinary: absent: Change in Urinary Stream - Musculoskeletal Musculoskeletal: absent: Back Pain - Integumentary Integumentary: absent: Rash - Neurological Neurological: absent: Weakness Past Patient History - Past Social History Smoking Status: Never Smoked - CARDIAC Hx Hypercholesterolemia: Yes - GASTROINTESTINAL Hx Diverticulitis: Yes - PSYCHIATRIC Hx Substance Use: No - SURGICAL HISTORY Hx Surgeries: Yes Other/Comment: Colonoscopy - ANESTHESIA Hx Anesthesia: Yes Hx Anesthesia Reactions: No Hx Malignant Hyperthermia: No Meds Allergies/Adverse Reactions: Allergies Allergy/AdvReac Type Severity Reaction Status Date / Time amoxicillin Allergy RASH Verified 04/29/18 04:07 Penicillins Allergy RASH Verified 04/29/18 04:07 - Medications Medications: Current Medications Metronidazole (Flagyl 500mg/100ml Ns) 100 mls @ 100 mls/hr IV STAT STA PRN Reason: Protocol Stop: 04/29/18 13:31 Ceftriaxone Sodium 1 gm/ (Sodium Chloride) 100 mls @ 100 mls/hr IVPB ONCE ONE Stop: 04/29/18 13:59 Physical Exam - Constitutional Appears: Non-toxic, No Acute Distress - Head Exam Head Exam: ATRAUMATIC, NORMAL INSPECTION, NORMOCEPHALIC - Eye Exam Eye Exam: EOMI, Normal appearance - ENT Exam ENT Exam: Mucous Membranes Moist, Normal Exam - Neck Exam Neck exam: Positive for: Full Rom, Normal Inspection - Respiratory Exam Respiratory Exam: Clear to Auscultation Bilateral, NORMAL BREATHING PATTERN - Cardiovascular Exam Cardiovascular Exam: REGULAR RHYTHM, +S1, +S2 - GI/Abdominal Exam GI & Abdominal Exam: Distended, Guarding, Hernia (Right inguinal), Hyperactive Bowel Sounds, Soft, Tenderness. absent: Firm - Rectal Exam Rectal Exam: Deferred - Extremities Exam Extremities exam: Positive for: normal inspection. Negative for: tenderness - Neurological Exam Neurological exam: Alert, CN II-XII Intact, Oriented x3 - Psychiatric Exam Psychiatric exam: Normal Affect, Normal Mood - Skin Skin Exam: Dry, Intact, Normal Color, Warm Results - Vital Signs Recent Vital Signs: Last Vital Signs Temp 99 F 04/29/18 04:07 Pulse 86 04/29/18 08:13 Resp 18 04/29/18 08:13 BP 135/90 04/29/18 08:13 Pulse Ox 99 04/29/18 13:16 - Labs Result Diagrams: 04/29/18 05:32 04/29/18 05:32 Labs: Laboratory Results - last 24 hr 04/29/18 04/29/18 04/29/18 05:32 05:32 05:43 WBC 7.2 RBC 5.12 Hgb 15.3 Hct 43.9 MCV 85.8 MCH 29.8 MCHC 34.8 RDW 12.9 Plt Count 191 MPV 7.2 Neut % (Auto) 62.9 Lymph % (Auto) 24.9 Pacific % (Auto) 8.1 Eos % (Auto) 3.4 Baso % (Auto) 0.7 Neut # (Auto) 4.5 Lymph # (Auto) 1.8 [place] # (Auto) 0.6 Eos # (Auto) 0.2 Baso # (Auto) 0.0 Sodium 141 Potassium 4.4 Chloride 103 Carbon Dioxide 28 Anion Gap 14 BUN 15 Creatinine 0.9 Est GFR ( Amer) > 60 Est GFR (Non-Af Amer) > 60 Random Glucose 144 H Lactic Acid 1.5 Calcium 9.3 Total Bilirubin 1.1 AST 44 ALT 62 Alkaline Phosphatase 84 Total Protein 7.4 Albumin 4.1 Globulin 3.3 Albumin/Globulin Ratio 1.2 Lipase 68 Urine Color Urine Clarity Urine pH Ur Specific [place] Urine Protein Urine Glucose (UA) Urine Ketones Urine Blood Urine Nitrate Urine Bilirubin Urine Urobilinogen Ur Leukocyte Esterase Urine RBC (Auto) Urine Microscopic WBC Ur Squamous Epith Cells 04/29/18 08:15 WBC RBC Hgb Hct MCV MCH MCHC RDW Plt Count MPV Neut % (Auto) Lymph % (Auto) Pacific % (Auto) Eos % (Auto) Baso % (Auto) Neut # (Auto) Lymph # (Auto) [place] # (Auto) Eos # (Auto) Baso # (Auto) Sodium Potassium Chloride Carbon Dioxide Anion Gap BUN Creatinine Est GFR ( Amer) Est GFR (Non-Af Amer) Random Glucose Lactic Acid Calcium Total Bilirubin AST ALT Alkaline Phosphatase Total Protein Albumin Globulin Albumin/Globulin Ratio Lipase Urine Color Yellow Urine Clarity Clear Urine pH 6.0 Ur Specific [place] 1.012 Urine Protein Negative Urine Glucose (UA) Neg Urine Ketones Negative Urine Blood Negative Urine Nitrate Negative Urine Bilirubin Negative Urine Urobilinogen 0.2-1.0 Ur Leukocyte Esterase Neg Urine RBC (Auto) 1 Urine Microscopic WBC < 1 Ur Squamous Epith Cells < 1 Assessment & Plan - Assessment and Plan (Free Text) Assessment: 52M w/52M w/PMH sig for colitis/diverticulitis consulted for cholecystitis. Findings on imaging incidental, clinically pt with diffuse abdominal pain, bloating, and diarrhea- likely 2/2 recent colonoscopy Plan: Pain control Simethicone ABx Ok for clears Monitor labs No surgical intervention at this time DW attending Anna, PGY-2 - Date & Time Date: 04/29/18 Time: 13:26
[2018-04-29 14:13] LABS: VENOUS BLOOD GAS BASE EXCESS -3.7 mmol/L (0.0-2.0); VENOUS BLOOD GAS PCO2 80 mmHg (40-60); VENOUS BLOOD GAS PO2 21 mm/Hg (30-55); VENOUS BLOOD PH 7.15 (7.32-7.43)
[2018-04-29 16:09] LABS: ABG ALLEN TEST YES; ARTERIAL BLOOD GAS HCO3 24.2 mmol/L (21-28); ARTERIAL BLOOD GAS O2 SAT 98.8 % (95-98); ARTERIAL BLOOD GAS PCO2 37 mm/Hg (35-45); ARTERIAL BLOOD GAS PH 7.41 (7.35-7.45); ARTERIAL BLOOD GAS PO2 76 mm/Hg (80-100); ARTERIAL BLOOD GAS TCO2 24.6 mmol/L (22-28)
[2018-04-29] MEDS ORDERED: Ciprofloxacin 400mg/200ml D5W 400 MG/200 ML BAG IVPB SCH (17:00)
[2018-04-29] MEDS: Dextrose 5%/0.45% NS 1,000 ML IV SCH (18:18)
[2018-04-29] MEDS ORDERED: Ciprofloxacin 200mg/100ml D5W 100 ML IVPB SCH (21:00)
[2018-04-30] MEDS: Ciprofloxacin 200mg/100ml D5W 100 ML IVPB SCH ×2 (05:47→16:44)
[2018-04-30] MEDS: Levothyroxine 25 MCG TAB PO SCH (06:08)
[2018-04-30] MEDS: Dextrose 5%/0.45% NS 1,000 ML IV SCH (07:51)
--- NOTE | 2018-04-30 08:43 | HP ---
Copied To: Duke Funes MD Attending MD: Duke Funes MD HISTORY OF PRESENT ILLNESS: The patient is a 62-year-old male who was admitted via the emergency room because of abdominal pain, bloating, some bloody diarrhea on the day of admission. He indicates that he had undergone colonoscopy in [place] 24 hours prior to presentation, and his symptoms started afterwards. He denies nausea or vomiting but has had intractable abdominal pain. PAST MEDICAL HISTORY: Remarkable for diverticular disease, colitis, hiatal hernia, right inguinal hernia. FAMILY HISTORY: Noncontributory. SOCIAL HISTORY: He denies alcohol or drug use. REVIEW OF SYSTEMS: Essentially unremarkable except for chronic diarrhea. PHYSICAL EXAMINATION: GENERAL: The patient is alert, oriented, appears to be much more comfortable this evening. VITAL SIGNS: Remarkable for blood pressure of 155/94 with a pulse of 64, respiratory rate 18. He is afebrile. O2 sat is 96% on room air. SKIN: Shows fair turgor. HEENT: Pupils are equal and reactive to light and accommodation. Mouth shows fair hygiene. JVP flat. LUNGS: Clear. HEART: Regular. No murmurs or gallop. ABDOMEN: Soft, distended with gas; otherwise unremarkable. EXTREMITIES: Show no edema or cyanosis. CENTRAL NERVOUS SYSTEM: Grossly intact. LABORATORY DATA: WBC 7.2, hemoglobin 15.3, and platelet count 191,000. Sodium 141, potassium 4.4, BUN of 15, and creatinine 0.9. Serum glucose 144. CT scan of abdomen is remarkable for diverticular disease, distended gallbladder with thickened wall, mild hepatosplenomegaly, and fatty liver. IMPRESSION: Acute diverticulitis with abdominal distention. Symptoms, however, could be due to postcolonoscopy syndrome. PLAN: The plan is intravenous hydration, intravenous antibiotics, analgesics for pain, and H2 barbara IV. Surgical evaluation already recommended. Duke Funes MD
--- NOTE | 2018-04-30 10:13 | CP.PCM.PN ---
Subjective - Date & Time of Evaluation Date of Evaluation: 04/30/18 Time of Evaluation: 10:15 - Subjective Subjective: H AND P DICTATED ON 04/29/18 STILL HAVING ABDOMINAL PAINS WITH SPASMS AND WATERY DIARRHEA Objective - Vital Signs/Intake and Output Vital Signs (last 24 hours): Temp Pulse Resp BP Pulse Ox 98.2 F 54 L 18 134/82 98 04/30/18 08:31 04/30/18 08:31 04/30/18 08:31 04/30/18 08:31 04/30/18 08:31 - Medications Medications: Current Medications Acetaminophen (Tylenol 325mg Tab) 650 mg PO Q4 PRN PRN Reason: Pain, Mild (1-3) Ceftriaxone Sodium 1 gm/ (Sodium Chloride) 100 mls @ 100 mls/hr IVPB DAILY [facility] PRN Reason: Protocol Last Admin: 04/30/18 09:24 Dose: 100 mls/hr Dextrose/Sodium Chloride (Dextrose 5%/0.45% Ns 1000 Ml) 1,000 mls @ 80 mls/hr IV .[id number] [facility] Stop: 04/30/18 17:40 Last Admin: 04/30/18 07:51 Dose: Not Given Ciprofloxacin (Cipro 200mg/100ml D5w) 100 mls @ 100 mls/hr IVPB Q12@0500,1700 [facility] PRN Reason: Protocol Last Admin: 04/30/18 05:47 Dose: 100 mls/hr Ketorolac Tromethamine (Toradol) 15 mg IM Q6 PRN PRN Reason: Pain, moderate (4-7) Last Admin: 04/30/18 07:32 Dose: 15 mg Levothyroxine Sodium (Synthroid) 25 mcg PO DAILY@0630 [facility] Last Admin: 04/30/18 06:08 Dose: 25 mcg Pantoprazole Sodium (Protonix Inj) 40 mg IVP DAILY [facility] Last Admin: 04/30/18 09:25 Dose: 40 mg - Labs Labs: 04/29/18 05:32 04/29/18 05:32 - Constitutional Appears: In Acute Distress - Head Exam Head Exam: ATRAUMATIC, NORMAL INSPECTION, NORMOCEPHALIC - Eye Exam Eye Exam: EOMI, Normal appearance, PERRL Pupil Exam: NORMAL ACCOMODATION, PERRL - ENT Exam ENT Exam: Mucous Membranes Moist, Normal Exam - Neck Exam Neck Exam: Full ROM, Normal Inspection. absent: Lymphadenopathy - Respiratory Exam Respiratory Exam: Clear to Ausculation Bilateral, NORMAL BREATHING PATTERN - Cardiovascular Exam Cardiovascular Exam: REGULAR RHYTHM, +S1, +S2. absent: Murmur - GI/Abdominal Exam GI & Abdominal Exam: Soft, Tenderness, Normal Bowel Sounds - Rectal Exam Rectal Exam: NORMAL INSPECTION - Extremities Exam Extremities Exam: Full ROM, Normal Capillary Refill, Normal Inspection. absent : Joint Swelling, Pedal Edema - Back Exam Back Exam: NORMAL INSPECTION - Neurological Exam Neurological Exam: Alert, Awake, CN II-XII Intact, Normal Gait, Oriented x3 - Psychiatric Exam Psychiatric exam: Normal Affect, Normal Mood - Skin Skin Exam: Dry, Intact, Normal Color, Warm Assessment and Plan - Assessment and Plan (Free Text) Assessment: ABDOMINAL PAIN POST-COLONOSCOPY DISORDER DIVERTICULAR DZ MILD CHOLECYSTITIS Plan: CONTINUE CURRENT RX GASTROENTEROLOGY EVAL
[2018-04-30] MEDS ORDERED: SODIUM CHLORIDE 0.9% IVPB ONE (13:12)
[2018-04-30] MEDS ORDERED: SINCALIDE IVPB ONE (13:12)
--- NOTE | 2018-04-30 14:16 | CP.PCM.PN ---
Subjective - Date & Time of Evaluation Date of Evaluation: 04/30/18 Time of Evaluation: 14:13 - Subjective Subjective: General surgery - Dr. Taylor Pt S&E. BRANDIN. Pt complains of RUQ and periumbilical abdominal pain, colicky and worsened after pain medication he received this morning. He also complains of diarrhea but this has been ongoing for past 2 months. he denies any nausea/ vomiting, fever/chills, sob/chest pain. Objective - Vital Signs/Intake and Output Vital Signs (last 24 hours): Temp Pulse Resp BP Pulse Ox 98.2 F 54 L 18 134/82 98 04/30/18 08:31 04/30/18 08:31 04/30/18 08:31 04/30/18 08:31 04/30/18 08:31 - Medications Medications: Current Medications Acetaminophen (Tylenol 325mg Tab) 650 mg PO Q4 PRN PRN Reason: Pain, Mild (1-3) Last Admin: 04/30/18 11:54 Dose: 650 mg Ceftriaxone Sodium 1 gm/ (Sodium Chloride) 100 mls @ 100 mls/hr IVPB DAILY [facility] PRN Reason: Protocol Last Admin: 04/30/18 09:24 Dose: 100 mls/hr Dextrose/Sodium Chloride (Dextrose 5%/0.45% Ns 1000 Ml) 1,000 mls @ 80 mls/hr IV .[id number] [facility] Stop: 04/30/18 17:40 Last Admin: 04/30/18 07:51 Dose: Not Given Ciprofloxacin (Cipro 200mg/100ml D5w) 100 mls @ 100 mls/hr IVPB Q12@0500,1700 [facility] PRN Reason: Protocol Last Admin: 04/30/18 05:47 Dose: 100 mls/hr Ketorolac Tromethamine (Toradol) 15 mg IM Q6 PRN PRN Reason: Pain, moderate (4-7) Last Admin: 04/30/18 12:55 Dose: 15 mg Levothyroxine Sodium (Synthroid) 25 mcg PO DAILY@0630 [facility] Last Admin: 04/30/18 06:08 Dose: 25 mcg Pantoprazole Sodium (Protonix Inj) 40 mg IVP DAILY [facility] Last Admin: 04/30/18 09:25 Dose: 40 mg - Labs Labs: 04/29/18 05:32 04/29/18 05:32 - Constitutional Appears: No Acute Distress - Head Exam Head Exam: ATRAUMATIC, NORMAL INSPECTION, NORMOCEPHALIC - Eye Exam Eye Exam: Normal appearance - Respiratory Exam Respiratory Exam: NORMAL BREATHING PATTERN. absent: Respiratory Distress - Cardiovascular Exam Cardiovascular Exam: REGULAR RHYTHM - GI/Abdominal Exam GI & Abdominal Exam: Soft, Tenderness (mild ttp ruq). absent: Distended, Firm, Guarding, Rigid, Rebound - Neurological Exam Neurological Exam: Alert, Oriented x3 - Psychiatric Exam Psychiatric exam: Normal Affect, Normal Mood - Skin Skin Exam: Dry, Intact Assessment and Plan - Assessment and Plan (Free Text) Assessment: 52M w/ RUQ abdominal pain and diarrhea s/p recent colonoscopy Plan: -HIDA with CCK ordered to r/o biliary dyskinesia -F/U GI -Continue care as per medical team -Will follow AYAN Carter PGY4
[2018-04-30] MEDS ORDERED: Oxycodone/Acetaminophen 5/325 mg Tab PO PRN (15:18)
--- NOTE | 2018-04-30 15:26 | NM ---
Date of service: 04/30/2018 PROCEDURE: Nuclear Medicine Hepatobiliary Scan HISTORY: Acute cholecystitis COMPARISON: April 29, 2018. Abdominal ultrasound and CT abdomen and pelvis. TECHNIQUE: 5.15 mCi of technetium 99m Mebrofenin was administered intravenously. Planar images of the abdomen were obtained at 5 min intervals to 60 mins. Delayed images were also obtained. FINDINGS: LIVER: Timely and homogenous uptake. COMMON BILE DUCT: identified at 5 mins. GALLBLADDER: Not visualized at 60 minutes. SMALL BOWEL: Identified at 5 mins. IMPRESSION: Abnormal/positive Hepatobiliary Scan. The cystic duct is occluded, presumptive evidence for acute cholecystitis and concordant with findings on recent cross-sectional imaging studies. .
--- NOTE | 2018-04-30 15:55 | CP.PCM.CON ---
<GetachewphyllisClayton - Last Filed: 04/30/18 16:35> History of Present Illness - History of Present Illness History of Present Illness: GI Fellow PGY4, Consult note. Consulted for abdominal pain, diarrhea. Devin Hernandez is a very pleasant 52yo [place] speaking male with hx of hypothyroid, diverticulitis presenting with acute abdominal pain and chronic diarrhea. Patient has been having the RUQ abdominal pain for 3 weeks on and off. At the worst it is a 9/10 crampy, pulsating pain, no radiation. The pain became acute and constant 2-3 days ago. He denies significant nausea, vomiting, fear of food or weight loss. He admits diarrhea x 2months that can be upto 5x/ day. He was recently evaluated by colonoscopy by Dr. Bynum for this problem. Patient reports no abnormal findings except for small polyp. PMHx- See above. PSHx- None FMHx- Denies hx of colon, gastric cancers. SocHx- Denies smoking. Occasional alcohol use. Drives trucks for a living. 12pt ROS completed and negative except for above. Past Patient History - Past Medical History & Family History Past Medical History?: Yes - Past Social History Smoking Status: Never Smoked - CARDIAC Hx Cardiac Disorders: Yes Hx Hypercholesterolemia: Yes - PULMONARY Hx Respiratory Disorders: No - NEUROLOGICAL Hx Neurological Disorder: No - HEENT Other/Comment: glasses - RENAL Hx Chronic Kidney Disease: No - ENDOCRINE/METABOLIC Hx Hypothyroidism: Yes - HEMATOLOGICAL/ONCOLOGICAL Hx Blood Disorders: No - INTEGUMENTARY Hx Dermatological Problems: No - MUSCULOSKELETAL/RHEUMATOLOGICAL Hx Musculoskeletal Disorders: No Hx Falls: No - GASTROINTESTINAL Hx Diverticulitis: Yes Other/Comment: colonoscopy 04/28/18 - GENITOURINARY/GYNECOLOGICAL Hx Genitourinary Disorders: No - PSYCHIATRIC Hx Psychophysiologic Disorder: No Hx Substance Use: No - SURGICAL HISTORY Hx Surgeries: No - ANESTHESIA Hx Anesthesia: Yes Hx Anesthesia Reactions: No Hx Malignant Hyperthermia: No Meds Allergies/Adverse Reactions: Allergies Allergy/AdvReac Type Severity Reaction Status Date / Time amoxicillin Allergy RASH Verified 04/29/18 04:07 Penicillins Allergy RASH Verified 04/29/18 04:07 - Medications Medications: Current Medications Acetaminophen (Tylenol 325mg Tab) 650 mg PO Q4 PRN PRN Reason: Pain, Mild (1-3) Last Admin: 04/30/18 11:54 Dose: 650 mg Hydromorphone HCl (Dilaudid) 2 mg IVP Q4 PRN PRN Reason: Pain, severe (8-10) Last Admin: 04/30/18 15:29 Dose: 2 mg Ceftriaxone Sodium 1 gm/ (Sodium Chloride) 100 mls @ 100 mls/hr IVPB DAILY [facility] PRN Reason: Protocol Last Admin: 04/30/18 09:24 Dose: 100 mls/hr Dextrose/Sodium Chloride (Dextrose 5%/0.45% Ns 1000 Ml) 1,000 mls @ 80 mls/hr IV .[id number] [facility] Stop: 04/30/18 17:40 Last Admin: 04/30/18 07:51 Dose: Not Given Ciprofloxacin (Cipro 200mg/100ml D5w) 100 mls @ 100 mls/hr IVPB Q12@0500,1700 [facility] PRN Reason: Protocol Last Admin: 04/30/18 05:47 Dose: 100 mls/hr Levothyroxine Sodium (Synthroid) 25 mcg PO DAILY@0630 [facility] Last Admin: 04/30/18 06:08 Dose: 25 mcg Oxycodone/Acetaminophen (Percocet 5/325 Mg Tab) 1 tab PO Q4 PRN PRN Reason: Pain, moderate (4-7) Stop: 05/03/18 15:19 Pantoprazole Sodium (Protonix Inj) 40 mg IVP DAILY [facility] Last Admin: 04/30/18 09:25 Dose: 40 mg Physical Exam - Constitutional Appears: Non-toxic Additional comments: In obvious discomfort from pain. - Head Exam Head Exam: ATRAUMATIC, NORMAL INSPECTION, NORMOCEPHALIC - Eye Exam Eye Exam: EOMI, Normal appearance, PERRL - Respiratory Exam Respiratory Exam: Clear to Auscultation Bilateral, NORMAL BREATHING PATTERN - Cardiovascular Exam Cardiovascular Exam: REGULAR RHYTHM - GI/Abdominal Exam GI & Abdominal Exam: Normal Bowel Sounds, Soft. absent: Distended, Tenderness Additional comments: Very TTP to light palpation in the RUQ. - Extremities Exam Extremities exam: Positive for: normal inspection - Neurological Exam Neurological exam: Alert, CN II-XII Intact, Normal Gait, Oriented x3, Reflexes Normal - Psychiatric Exam Psychiatric exam: Normal Affect, Normal Mood - Skin Skin Exam: Dry, Intact, Normal Color, Warm Results - Vital Signs Recent Vital Signs: Last Vital Signs Temp 98.2 F 04/30/18 08:31 Pulse 54 L 04/30/18 08:31 Resp 18 04/30/18 08:31 BP 134/82 04/30/18 08:31 Pulse Ox 98 04/30/18 08:31 - Labs Result Diagrams: 04/29/18 05:32 04/29/18 05:32 Labs: Laboratory Results - last 24 hr 04/29/18 15:59 pCO2 37 pO2 76 L HCO3 24.2 ABG pH 7.41 ABG Total CO2 24.6 ABG O2 Saturation 98.8 H ABG Base Excess -0.8 Steven Test Yes ABG Potassium 3.9 A-a O2 Difference 27.0 Sodium 135.0 Chloride 105.0 Glucose 118 H Lactate 1.2 FiO2 21.0 Arterial Blood Potassium 3.9 Assessment & Plan - Assessment and Plan (Free Text) Assessment: 52M with abdominal pain due to acute calculus cholecystitis. #Acute calculus cholecystitis #Hepatosteatosis #Diverticulosis with hx of diverticulitis #Chronic diarrhea #Hypothyroidism #Hyperlipidemia Plan: -Continue supportive care with IVF -Continue empiric antibiotics -CT, US, HIDA scan remarkable for acute cholecystitis with cystic duct stone obstruction. -Patient needs surgery -No indication for ERCP at this time -Dilaudid is making him feel nauseous, avoid. -Defer diet to surgical team as they will decide NPO timing. -Diarrhea w/u: Electrolytes, c. diff, culture, ova/parasites - Date & Time Date: 04/30/18 Time: 15:54 <Jas Pope - Last Filed: 04/30/18 23:00> Meds - Medications Medications: Current Medications Acetaminophen (Tylenol 325mg Tab) 650 mg PO Q4 PRN PRN Reason: Pain, Mild (1-3) Last Admin: 04/30/18 11:54 Dose: 650 mg Ceftriaxone Sodium 1 gm/ (Sodium Chloride) 100 mls @ 100 mls/hr IVPB DAILY [facility] PRN Reason: Protocol Last Admin: 04/30/18 09:24 Dose: 100 mls/hr Ciprofloxacin (Cipro 200mg/100ml D5w) 100 mls @ 100 mls/hr IVPB Q12@0500,1700 [facility] PRN Reason: Protocol Last Admin: 04/30/18 16:44 Dose: 100 mls/hr Ketorolac Tromethamine (Toradol) 30 mg IVP Q4H PRN PRN Reason: Pain, severe (8-10) Levothyroxine Sodium (Synthroid) 25 mcg PO DAILY@0630 [facility] Last Admin: 04/30/18 06:08 Dose: 25 mcg Oxycodone/Acetaminophen (Percocet 5/325 Mg Tab) 1 tab PO Q4 PRN PRN Reason: Pain, moderate (4-7) Stop: 05/03/18 15:19 Pantoprazole Sodium (Protonix Inj) 40 mg IVP DAILY [facility] Last Admin: 04/30/18 09:25 Dose: 40 mg Results - Vital Signs Recent Vital Signs: Last Vital Signs Temp 97.7 F 04/30/18 16:15 Pulse 55 L 04/30/18 16:15 Resp 18 04/30/18 16:15 BP 122/79 04/30/18 16:15 Pulse Ox 98 04/30/18 16:15 - Labs Result Diagrams: 04/30/18 19:50 04/30/18 19:50 Labs: Laboratory Results - last 24 hr 04/30/18 04/30/18 19:50 19:50 WBC 9.3 RBC 5.18 Hgb 15.2 Hct 44.6 MCV 86.1 MCH 29.3 MCHC 34.1 RDW 12.8 Plt Count 186 Sodium 138 Potassium 4.8 Chloride 103 Carbon Dioxide 24 Anion Gap 16 BUN 10 Creatinine 0.7 L Est GFR ( Amer) > 60 Est GFR (Non-Af Amer) > 60 Random Glucose 167 H Calcium 9.0 Phosphorus 3.0 Magnesium 2.0 Total Bilirubin 1.1 AST 39 ALT 65 Alkaline Phosphatase 84 Total Protein 7.4 Albumin 4.1 Globulin 3.3 Albumin/Globulin Ratio 1.2 Assessment & Plan - Assessment and Plan (Free Text) Plan: Patient seen with GI fellow. He has RUQ pain, abnormal CT, and + HIDA. These findings are diagnostic of acute cholecystitis and patient needs lap clare. Discussed with director medical surgical.
[2018-04-30 19:53] LABS: HEMOGLOBIN 15.2 g/dL (12.0-18.0); MEAN CELL VOLUME 86.1 fl (80.0-94.0); MEAN CORPUSCULAR HEMOGLOBIN 29.3 pg (27.0-31.0); MEAN CORPUSCULAR HGB CONC 34.1 g/dL (33.0-37.0); RBC 5.18 Mil/uL (4.40-5.90); RED CELL DISTRIBUTION WIDTH 12.8 % (11.5-14.5); WHITE BLOOD COUNT 9.3 K/uL (4.8-10.8)
[2018-04-30 20:21] LABS: ALB/GLOB RATIO 1.2 (1.0-2.1); ALBUMIN 4.1 g/dL (3.5-5.0); ALT/SGPT 65 U/L (21-72); AST/SGOT 39 U/L (17-59); BLOOD UREA NITROGEN 10 mg/dl (9-20); GFR AFRICAN-AMERICAN > 60; GFR NON-AFRICAN AMERICAN > 60
[2018-05-01] MEDS: Ciprofloxacin 200mg/100ml D5W 100 ML IVPB SCH (05:37)
[2018-05-01] MEDS: Levothyroxine 25 MCG TAB PO SCH (05:38)
--- NOTE | 2018-05-01 07:27 | CP.PCM.PN ---
Subjective - Date & Time of Evaluation Date of Evaluation: 05/01/18 Time of Evaluation: 07:24 - Subjective Subjective: General Surgery - Dr. Taylor Pt S&E. BRANDIN. Pt continues to complain of RUQ abdominal pain and diarrhea, unchanged. No nausea/vomiting, fevers/chills, sob/chest pain. Objective - Vital Signs/Intake and Output Vital Signs (last 24 hours): Temp Pulse Resp BP Pulse Ox 97.4 F L 51 L 18 131/85 97 05/01/18 00:10 05/01/18 00:10 05/01/18 00:10 05/01/18 00:10 05/01/18 00:10 Intake and Output: 05/01/18 05/01/18 06:59 18:59 Intake Total 1950 Output Total 600 Balance 1350 - Medications Medications: Current Medications Acetaminophen (Tylenol 325mg Tab) 650 mg PO Q4 PRN PRN Reason: Pain, Mild (1-3) Last Admin: 04/30/18 11:54 Dose: 650 mg Ceftriaxone Sodium 1 gm/ (Sodium Chloride) 100 mls @ 100 mls/hr IVPB DAILY [facility] PRN Reason: Protocol Last Admin: 04/30/18 09:24 Dose: 100 mls/hr Ketorolac Tromethamine (Toradol) 30 mg IVP Q4H PRN PRN Reason: Pain, severe (8-10) Levothyroxine Sodium (Synthroid) 25 mcg PO DAILY@0630 [facility] Last Admin: 05/01/18 05:38 Dose: 25 mcg Oxycodone/Acetaminophen (Percocet 5/325 Mg Tab) 1 tab PO Q4 PRN PRN Reason: Pain, moderate (4-7) Stop: 05/03/18 15:19 Pantoprazole Sodium (Protonix Inj) 40 mg IVP DAILY [facility] Last Admin: 04/30/18 09:25 Dose: 40 mg - Labs Labs: 04/30/18 19:50 04/30/18 19:50 - Constitutional Appears: No Acute Distress - Head Exam Head Exam: ATRAUMATIC, NORMAL INSPECTION, NORMOCEPHALIC - Eye Exam Eye Exam: Normal appearance - Respiratory Exam Respiratory Exam: NORMAL BREATHING PATTERN. absent: Respiratory Distress - Cardiovascular Exam Cardiovascular Exam: REGULAR RHYTHM - GI/Abdominal Exam GI & Abdominal Exam: Soft, Tenderness (ruq). absent: Distended, Firm, Guarding , Rigid, Rebound - Neurological Exam Neurological Exam: Alert, Oriented x3 - Psychiatric Exam Psychiatric exam: Normal Affect, Normal Mood - Skin Skin Exam: Dry, Intact Assessment and Plan - Assessment and Plan (Free Text) Assessment: 52M w/ RUQ abdominal pain and diarrhea s/p recent colonoscopy, HIDA shows non- filling of the gallbladder Plan: -Plan for OR tomorrow for Cholecystectomy -Continue pain control PRN -Continue IV Abx, IVF -NPO after midnight DW Dr. Brandon Carter PGY4
[2018-05-01 07:30] LABS: HEMOGLOBIN 15.3 g/dL (12.0-18.0); MEAN CELL VOLUME 84.4 fl (80.0-94.0); MEAN CORPUSCULAR HEMOGLOBIN 29.8 pg (27.0-31.0); MEAN CORPUSCULAR HGB CONC 35.2 g/dL (33.0-37.0); RBC 5.14 Mil/uL (4.40-5.90); RED CELL DISTRIBUTION WIDTH 12.9 % (11.5-14.5); WHITE BLOOD COUNT 5.7 K/uL (4.8-10.8)
[2018-05-01 08:04] LABS: ALB/GLOB RATIO 1.3 (1.0-2.1); ALBUMIN 3.9 g/dL (3.5-5.0); ALT/SGPT 58 U/L (21-72); AST/SGOT 37 U/L (17-59); BLOOD UREA NITROGEN 7 mg/dl (9-20); CALCIUM 9.2 mg/dL (8.4-10.2); GFR AFRICAN-AMERICAN > 60; GFR NON-AFRICAN AMERICAN > 60
--- NOTE | 2018-05-01 08:34 | CP.PCM.PN ---
Subjective - Date & Time of Evaluation Date of Evaluation: 05/01/18 Time of Evaluation: 08:34 - Subjective Subjective: STILL HAVING ABDOMINAL PAINS AND DIARRHEA SCHEDULED FOR SURGERY IN AM Objective - Vital Signs/Intake and Output Vital Signs (last 24 hours): Temp Pulse Resp BP Pulse Ox 97.5 F L 51 L 18 118/78 97 05/01/18 08:19 05/01/18 08:19 05/01/18 08:19 05/01/18 08:19 05/01/18 08:19 Intake and Output: 05/01/18 05/01/18 06:59 18:59 Intake Total 1950 Output Total 600 Balance 1350 - Medications Medications: Current Medications Acetaminophen (Tylenol 325mg Tab) 650 mg PO Q4 PRN PRN Reason: Pain, Mild (1-3) Last Admin: 04/30/18 11:54 Dose: 650 mg Ceftriaxone Sodium 1 gm/ (Sodium Chloride) 100 mls @ 100 mls/hr IVPB DAILY [facility] PRN Reason: Protocol Last Admin: 04/30/18 09:24 Dose: 100 mls/hr Metronidazole (Flagyl 500mg/100ml Ns) 100 mls @ 100 mls/hr IVPB Q8 [facility] PRN Reason: Protocol Ketorolac Tromethamine (Toradol) 30 mg IVP Q4H PRN PRN Reason: Pain, severe (8-10) Levothyroxine Sodium (Synthroid) 25 mcg PO DAILY@0630 [facility] Last Admin: 05/01/18 05:38 Dose: 25 mcg Oxycodone/Acetaminophen (Percocet 5/325 Mg Tab) 1 tab PO Q4 PRN PRN Reason: Pain, moderate (4-7) Stop: 05/03/18 15:19 Pantoprazole Sodium (Protonix Inj) 40 mg IVP DAILY [facility] Last Admin: 04/30/18 09:25 Dose: 40 mg - Labs Labs: 05/01/18 06:39 05/01/18 06:39 - Constitutional Appears: Chronically Ill - Head Exam Head Exam: ATRAUMATIC, NORMAL INSPECTION, NORMOCEPHALIC - Eye Exam Eye Exam: EOMI, Normal appearance, PERRL Pupil Exam: NORMAL ACCOMODATION, PERRL - ENT Exam ENT Exam: Mucous Membranes Moist, Normal Exam - Neck Exam Neck Exam: Full ROM, Normal Inspection. absent: Lymphadenopathy - Respiratory Exam Respiratory Exam: Clear to Ausculation Bilateral, NORMAL BREATHING PATTERN - Cardiovascular Exam Cardiovascular Exam: REGULAR RHYTHM, +S1, +S2. absent: Murmur - GI/Abdominal Exam GI & Abdominal Exam: Soft, Tenderness, Normal Bowel Sounds - Rectal Exam Rectal Exam: NORMAL INSPECTION - Extremities Exam Extremities Exam: Full ROM, Normal Capillary Refill, Normal Inspection. absent : Joint Swelling, Pedal Edema - Back Exam Back Exam: NORMAL INSPECTION - Neurological Exam Neurological Exam: Alert, Awake, CN II-XII Intact, Normal Gait, Oriented x3 - Psychiatric Exam Psychiatric exam: Normal Affect, Normal Mood - Skin Skin Exam: Dry, Intact, Normal Color, Warm Assessment and Plan - Assessment and Plan (Free Text) Assessment: ABDOMINAL PAIN--CHOLECYSTITIS/LITHIASIS/COLITIS CHRONIC DIARRHEA Plan: FOR SURGERY IN AM CONTINUE ANTIBIOTIC RX
[2018-05-01] MEDS: metroNIDAZOLE 500mg/100ml NS 100 ML IVPB SCH ×2 (09:03→16:07)
--- NOTE | 2018-05-01 09:08 | CP.PCM.PN ---
<Clayton Luu - Last Filed: 05/01/18 19:09> Subjective - Date & Time of Evaluation Date of Evaluation: 05/01/18 Time of Evaluation: 09:05 - Subjective Subjective: GI Fellow pGY4, Progress note. No acute overnight events. Looks to be improving. OR tomorrow. Objective - Vital Signs/Intake and Output Vital Signs (last 24 hours): Temp Pulse Resp BP Pulse Ox 97.5 F L 51 L 18 118/78 97 05/01/18 08:19 05/01/18 08:19 05/01/18 08:19 05/01/18 08:19 05/01/18 08:19 Intake and Output: 05/01/18 05/01/18 06:59 18:59 Intake Total 1950 Output Total 600 Balance 1350 - Medications Medications: Current Medications Acetaminophen (Tylenol 325mg Tab) 650 mg PO Q4 PRN PRN Reason: Pain, Mild (1-3) Last Admin: 04/30/18 11:54 Dose: 650 mg Ceftriaxone Sodium 1 gm/ (Sodium Chloride) 100 mls @ 100 mls/hr IVPB DAILY [facility] PRN Reason: Protocol Last Admin: 05/01/18 08:42 Dose: 100 mls/hr Metronidazole (Flagyl 500mg/100ml Ns) 100 mls @ 100 mls/hr IVPB Q8 [facility] PRN Reason: Protocol Last Admin: 05/01/18 09:03 Dose: 100 mls/hr Ketorolac Tromethamine (Toradol) 30 mg IVP Q4H PRN PRN Reason: Pain, severe (8-10) Levothyroxine Sodium (Synthroid) 25 mcg PO DAILY@0630 [facility] Last Admin: 05/01/18 05:38 Dose: 25 mcg Oxycodone/Acetaminophen (Percocet 5/325 Mg Tab) 1 tab PO Q4 PRN PRN Reason: Pain, moderate (4-7) Stop: 05/03/18 15:19 Pantoprazole Sodium (Protonix Inj) 40 mg IVP DAILY [facility] Last Admin: 05/01/18 08:42 Dose: 40 mg - Labs Labs: 05/01/18 06:39 05/01/18 06:39 - Constitutional Appears: Well - Head Exam Head Exam: ATRAUMATIC, NORMAL INSPECTION, NORMOCEPHALIC - Eye Exam Eye Exam: EOMI, Normal appearance, PERRL - Respiratory Exam Respiratory Exam: Clear to Ausculation Bilateral, NORMAL BREATHING PATTERN - Cardiovascular Exam Cardiovascular Exam: REGULAR RHYTHM, +S1, +S2. absent: Murmur - GI/Abdominal Exam GI & Abdominal Exam: Soft, Tenderness, Normal Bowel Sounds - Extremities Exam Extremities Exam: Full ROM, Normal Capillary Refill, Normal Inspection. absent : Joint Swelling, Pedal Edema - Neurological Exam Neurological Exam: Alert, Awake, CN II-XII Intact, Normal Gait, Oriented x3 - Psychiatric Exam Psychiatric exam: Normal Affect, Normal Mood - Skin Skin Exam: Dry, Intact, Normal Color, Warm Assessment and Plan - Assessment and Plan (Free Text) Assessment: 52M with abdominal pain due to acute calculus cholecystitis. #Acute calculus cholecystitis #Hepatosteatosis #Diverticulosis with hx of diverticulitis #Chronic diarrhea #Hypothyroidism #Hyperlipidemia Plan: -Continue supportive care with IVF -Continue empiric antibiotics -CT, US, HIDA scan remarkable for acute cholecystitis with cystic duct stone obstruction. -No indication for ERCP at this time -Defer diet to surgical team as they will decide NPO timing. -Diarrhea w/u: Electrolytes, c. diff, culture, ova/parasites. Note: Patient was having chronic diarrhea w/u as outpt with Dr. Bynum. -OR Tomorrow. <Jas Pope - Last Filed: 05/01/18 19:49> Objective - Vital Signs/Intake and Output Vital Signs (last 24 hours): Temp Pulse Resp BP Pulse Ox 97.9 F 60 18 126/77 96 05/01/18 16:34 05/01/18 16:34 05/01/18 16:34 05/01/18 16:34 05/01/18 16:34 - Medications Medications: Current Medications Acetaminophen (Tylenol 325mg Tab) 650 mg PO Q4 PRN PRN Reason: Pain, Mild (1-3) Last Admin: 04/30/18 11:54 Dose: 650 mg Ceftriaxone Sodium 1 gm/ (Sodium Chloride) 100 mls @ 100 mls/hr IVPB DAILY [facility] PRN Reason: Protocol Last Admin: 05/01/18 08:42 Dose: 100 mls/hr Metronidazole (Flagyl 500mg/100ml Ns) 100 mls @ 100 mls/hr IVPB Q8 [facility] PRN Reason: Protocol Last Admin: 05/01/18 16:07 Dose: 100 mls/hr Dextrose/Sodium Chloride (Dextrose 5%/0.45% Ns 1000 Ml) 1,000 mls @ 100 mls/hr IV .Q10H [facility] Stop: 05/02/18 12:24 Last Admin: 05/01/18 12:26 Dose: 100 mls/hr Ketorolac Tromethamine (Toradol) 30 mg IVP Q4H PRN PRN Reason: Pain, severe (8-10) Levothyroxine Sodium (Synthroid) 25 mcg PO DAILY@0630 [facility] Last Admin: 05/01/18 05:38 Dose: 25 mcg Oxycodone/Acetaminophen (Percocet 5/325 Mg Tab) 1 tab PO Q4 PRN PRN Reason: Pain, moderate (4-7) Stop: 05/03/18 15:19 Pantoprazole Sodium (Protonix Inj) 40 mg IVP DAILY [facility] Last Admin: 05/01/18 08:42 Dose: 40 mg - Labs Labs: 05/01/18 06:39 05/01/18 06:39 PT 12.2 Seconds (9.8-13.1) 05/01/18 09:47 INR 1.1 05/01/18 09:47 APTT 31.5 Seconds (25.6-37.1) 05/01/18 09:47 Assessment and Plan - Assessment and Plan (Free Text) Assessment: Patient examined and abdomen somewhat less tender. For surgery tomorrow. W/u diarrhea as outpatient.
[2018-05-01 10:41] LABS: INR 1.1; PROTHROMBIN TIME 12.2 Seconds (9.8-13.1)
[2018-05-01 10:44] LABS: PARTIAL THROMBOPLASTIN TIME 31.5 Seconds (25.6-37.1)
[2018-05-01] MEDS: Dextrose 5%/0.45% NS 1,000 ML IV SCH ×2 (12:26→22:30)
[2018-05-02] MEDS: metroNIDAZOLE 500mg/100ml NS 100 ML IVPB SCH ×3 (00:28→17:33)
[2018-05-02] MEDS: Dextrose 5%/0.45% NS 1,000 ML IV SCH ×2 (00:31→08:38)
[2018-05-02] MEDS: Levothyroxine 25 MCG TAB PO SCH (05:46)
[2018-05-02 06:17] LABS: MEAN CORPUSCULAR HEMOGLOBIN 29.5 pg (27.0-31.0); MEAN CORPUSCULAR HGB CONC 34.3 g/dL (33.0-37.0); RBC 5.09 Mil/uL (4.40-5.90); RED CELL DISTRIBUTION WIDTH 12.9 % (11.5-14.5); WHITE BLOOD COUNT 5.5 K/uL (4.8-10.8)
[2018-05-02 06:30] LABS: INR 1.1; PROTHROMBIN TIME 12.3 Seconds (9.8-13.1)
[2018-05-02 06:31] LABS: PARTIAL THROMBOPLASTIN TIME 32.4 Seconds (25.6-37.1)
--- NOTE | 2018-05-02 06:52 | CP.PCM.PN ---
Subjective - Date & Time of Evaluation Date of Evaluation: 05/02/18 Time of Evaluation: 06:50 - Subjective Subjective: GI Fellow PGY4, progress note. OR today. NO acute events overnight. Objective - Vital Signs/Intake and Output Vital Signs (last 24 hours): Temp Pulse Resp BP Pulse Ox 98.2 F 58 L 19 117/74 97 05/02/18 06:00 05/02/18 06:00 05/02/18 06:00 05/02/18 06:00 05/02/18 06:00 - Medications Medications: Current Medications Acetaminophen (Tylenol 325mg Tab) 650 mg PO Q4 PRN PRN Reason: Pain, Mild (1-3) Last Admin: 04/30/18 11:54 Dose: 650 mg Ceftriaxone Sodium 1 gm/ (Sodium Chloride) 100 mls @ 100 mls/hr IVPB DAILY [facility] PRN Reason: Protocol Last Admin: 05/01/18 08:42 Dose: 100 mls/hr Metronidazole (Flagyl 500mg/100ml Ns) 100 mls @ 100 mls/hr IVPB Q8 [facility] PRN Reason: Protocol Last Admin: 05/02/18 00:28 Dose: 100 mls/hr Dextrose/Sodium Chloride (Dextrose 5%/0.45% Ns 1000 Ml) 1,000 mls @ 100 mls/hr IV .Q10H [facility] Stop: 05/02/18 12:24 Last Admin: 05/02/18 00:31 Dose: 100 mls/hr Ketorolac Tromethamine (Toradol) 30 mg IVP Q4H PRN PRN Reason: Pain, severe (8-10) Levothyroxine Sodium (Synthroid) 25 mcg PO DAILY@0630 [facility] Last Admin: 05/02/18 05:46 Dose: Not Given Oxycodone/Acetaminophen (Percocet 5/325 Mg Tab) 1 tab PO Q4 PRN PRN Reason: Pain, moderate (4-7) Stop: 05/03/18 15:19 Last Admin: 05/01/18 21:50 Dose: 1 tab Pantoprazole Sodium (Protonix Inj) 40 mg IVP DAILY [facility] Last Admin: 05/01/18 08:42 Dose: 40 mg - Labs Labs: 05/02/18 05:50 05/01/18 06:39 PT 12.3 Seconds (9.8-13.1) 05/02/18 05:50 INR 1.1 05/02/18 05:50 APTT 32.4 Seconds (25.6-37.1) 05/02/18 05:50 - Constitutional Appears: Well, Non-toxic, No Acute Distress - Eye Exam Eye Exam: EOMI, Normal appearance, PERRL - ENT Exam ENT Exam: Mucous Membranes Moist, Normal Exam - Respiratory Exam Respiratory Exam: Clear to Ausculation Bilateral, NORMAL BREATHING PATTERN - Cardiovascular Exam Cardiovascular Exam: REGULAR RHYTHM, +S1, +S2. absent: Murmur - GI/Abdominal Exam GI & Abdominal Exam: Soft, Normal Bowel Sounds. absent: Tenderness - Extremities Exam Extremities Exam: Normal Inspection - Neurological Exam Neurological Exam: Alert, Awake, Oriented x3 - Psychiatric Exam Psychiatric exam: Normal Affect, Normal Mood - Skin Skin Exam: Dry, Normal Color Assessment and Plan - Assessment and Plan (Free Text) Assessment: 52M with abdominal pain due to acute calculus cholecystitis. #Acute calculus cholecystitis #Hepatosteatosis #Diverticulosis with hx of diverticulitis #Chronic diarrhea #Hypothyroidism #Hyperlipidemia Plan: -Continue supportive care with IVF -Continue empiric antibiotics -CT, US, HIDA scan remarkable for acute cholecystitis with cystic duct stone obstruction. -Defer diet to surgical team as they will decide NPO timing. -Diarrhea w/u: Electrolytes, c. diff, culture, ova/parasites. Note: Patient was having chronic diarrhea w/u as outpt with Dr. Bynum. -OR Today
[2018-05-02 08:08] LABS: ALB/GLOB RATIO 1.2 (1.0-2.1); ALBUMIN 3.9 g/dL (3.5-5.0); ALT/SGPT 73 U/L (21-72); AST/SGOT 51 U/L (17-59); BLOOD UREA NITROGEN 10 mg/dl (9-20); CALCIUM 9.1 mg/dL (8.4-10.2); GFR AFRICAN-AMERICAN > 60; GFR NON-AFRICAN AMERICAN > 60
[2018-05-02] MEDS ORDERED: Dexamethasone 4 mg/1 ml ONE (09:37)
[2018-05-02] MEDS ORDERED: Succinylcholine 200 mg/10 ml Inj IV ONE (09:38)
[2018-05-02] MEDS ORDERED: Rocuronium 10 mg/ml (5 ml) ONE (09:41)
[2018-05-02] MEDS ORDERED: Neostigmine 1:1000 (1 mg/ml) Inj ONE (09:41)
[2018-05-02] MEDS ORDERED: Lidocaine 4% (Laryng-O-Jet) Kit MM ONE (09:41)
[2018-05-02] MEDS ORDERED: Lactated Ringer's 1,000 ML IV ONE ×2 (09:52→10:30)
[2018-05-02] MEDS ORDERED: Propofol 10 mg/ml Inj (20 ML) ONE (09:53)
[2018-05-02] MEDS ORDERED: Midazolam 2 MG/2 ML VIAL ONE (09:53)
[2018-05-02] MEDS ORDERED: Iohexol 300 10 ML ONE (10:12)
[2018-05-02] MEDS ORDERED: Bupivacaine 0.5% Inj(30mL) IJ ONE (10:12)
[2018-05-02] MEDS ORDERED: Bupivacaine HCl 0.5% PF (30 ml) Inj ONE (10:13)
[2018-05-02] MEDS ORDERED: Desflurane Inhalation Anesthetic Liq (240 ml) ONE (10:30)
[2018-05-02] MEDS ORDERED: Lactated Ringer's 1,000 ML IV SCH (11:45)
[2018-05-02] MEDS ORDERED: oxyCODONE 5 mg Immediate Release Tab PO PRN (11:48)
--- NOTE | 2018-05-02 11:54 | PCM.SURG1 ---
Surgeon's Initial Post Op Note - Surgeon's Notes Surgeon: Dr. Wagner Taylor Life Management Teacher: Roberto Amato PGY-4; Haley Castillo PGY-2 Type of Anesthesia: General Endo Anesthesia Administered By: Dr. Christy Pre-Operative Diagnosis: Biliary Dyskinesia, cholelithiasis Operative Findings: See op report Post-Operative Diagnosis: cholelithiasis Operation Performed: Laparoscopic cholecystectomy Specimen/Specimens Removed: Gallbladder Estimated Blood Loss: EBL {In ML}: 20 Blood Products Given: N/A Drains Used: No Drains Post-Op Condition: Good Date of Surgery/Procedure: 05/02/18 Time of Surgery/Procedure: 11:33
[2018-05-02] MEDS: HYDROmorphone 0.5 mg/0.5 ml ISec IVP PRN ×2 (12:20→12:30)
--- NOTE | 2018-05-02 13:05 | CP.PCM.PN ---
Subjective - Date & Time of Evaluation Date of Evaluation: 05/02/18 Time of Evaluation: 13:05 - Subjective Subjective: SEEN EARLIER THIS AM FEELS BETTER LESS ABDOMINAL PAIN AND DIARRHEA Objective - Vital Signs/Intake and Output Vital Signs (last 24 hours): Temp Pulse Resp BP Pulse Ox 97.8 F 63 18 120/72 96 05/02/18 12:35 05/02/18 12:35 05/02/18 12:35 05/02/18 12:35 05/02/18 12:35 Intake and Output: 05/02/18 05/02/18 06:59 18:59 Intake Total 1500 Balance 1500 - Medications Medications: Current Medications Acetaminophen (Tylenol 325mg Tab) 650 mg PO Q4 PRN PRN Reason: Pain, Mild (1-3) Last Admin: 04/30/18 11:54 Dose: 650 mg Hydromorphone HCl (Dilaudid) 0.5 mg IVP Q5M PRN PRN Reason: Pain, moderate (4-7) Stop: 05/02/18 13:39 Last Admin: 05/02/18 12:30 Dose: 0.5 mg Ceftriaxone Sodium 1 gm/ (Sodium Chloride) 100 mls @ 100 mls/hr IVPB DAILY [facility] PRN Reason: Protocol Last Admin: 05/02/18 08:39 Dose: 100 mls/hr Metronidazole (Flagyl 500mg/100ml Ns) 100 mls @ 100 mls/hr IVPB Q8 [facility] PRN Reason: Protocol Last Admin: 05/02/18 08:39 Dose: 100 mls/hr Lactated Ringer's (Lactated Ringer's) 1,000 mls @ 100 mls/hr IV .Q10H [facility] Levothyroxine Sodium (Synthroid) 25 mcg PO DAILY@0630 [facility] Last Admin: 05/02/18 05:46 Dose: Not Given Ondansetron HCl (Zofran Inj) 4 mg IVP ONCE PRN PRN Reason: Nausea/Vomiting Stop: 05/02/18 13:39 Oxycodone HCl (Oxycodone Immediate Release Tab) 5 mg PO Q6 PRN PRN Reason: Pain, severe (8-10) Oxycodone HCl (Oxycodone Immediate Release Tab) 10 mg PO Q6 PRN PRN Reason: Pain, moderate (4-7) Oxycodone/Acetaminophen (Percocet 5/325 Mg Tab) 1 tab PO Q4 PRN PRN Reason: Pain, moderate (4-7) Stop: 05/03/18 15:19 Last Admin: 05/01/18 21:50 Dose: 1 tab Pantoprazole Sodium (Protonix Inj) 40 mg IVP DAILY [facility] Last Admin: 05/02/18 08:39 Dose: 40 mg - Labs Labs: 05/02/18 05:50 05/02/18 05:50 PT 12.3 Seconds (9.8-13.1) 05/02/18 05:50 INR 1.1 05/02/18 05:50 APTT 32.4 Seconds (25.6-37.1) 05/02/18 05:50 - Constitutional Appears: No Acute Distress - Head Exam Head Exam: ATRAUMATIC, NORMAL INSPECTION, NORMOCEPHALIC - Eye Exam Eye Exam: EOMI, Normal appearance, PERRL Pupil Exam: NORMAL ACCOMODATION, PERRL - ENT Exam ENT Exam: Mucous Membranes Moist, Normal Exam - Neck Exam Neck Exam: Full ROM, Normal Inspection. absent: Lymphadenopathy - Respiratory Exam Respiratory Exam: Clear to Ausculation Bilateral, NORMAL BREATHING PATTERN - Cardiovascular Exam Cardiovascular Exam: REGULAR RHYTHM, +S1, +S2. absent: Murmur - GI/Abdominal Exam GI & Abdominal Exam: Soft, Normal Bowel Sounds. absent: Tenderness - Rectal Exam Rectal Exam: NORMAL INSPECTION - Extremities Exam Extremities Exam: Full ROM, Normal Capillary Refill, Normal Inspection. absent : Joint Swelling, Pedal Edema - Back Exam Back Exam: NORMAL INSPECTION - Neurological Exam Neurological Exam: Alert, Awake, CN II-XII Intact, Normal Gait, Oriented x3 - Psychiatric Exam Psychiatric exam: Normal Affect, Normal Mood - Skin Skin Exam: Dry, Intact, Normal Color, Warm Assessment and Plan - Assessment and Plan (Free Text) Assessment: ACUTE CHOLECYSTITIS DIARRHEA--IMPROVED Plan: FOR CHOLECYSTECTOMY TODAY D/C C.DIF ISOLATION
[2018-05-02] MEDS: oxyCODONE 10 mg Immediate Release Tab PO PRN (17:36)
[2018-05-03] MEDS: oxyCODONE 10 mg Immediate Release Tab PO PRN ×2 (00:44→09:15)
[2018-05-03] MEDS: metroNIDAZOLE 500mg/100ml NS 100 ML IVPB SCH ×3 (00:45→16:56)
[2018-05-03] MEDS: Levothyroxine 25 MCG TAB PO SCH (06:06)
--- NOTE | 2018-05-03 07:03 | CP.PCM.PN ---
Subjective - Date & Time of Evaluation Date of Evaluation: 05/03/18 Time of Evaluation: 07:01 - Subjective Subjective: General surgery progress note for Dr. Matthew Castillo, PGY-2 Pt S & E at bedside at 0640 Pt reports minimal abdominal pain- well controlled. Tolerated diet. Voiding. Ambulated. Has not had a BM yet. Denies N & V, F & C. Objective - Vital Signs/Intake and Output Vital Signs (last 24 hours): Temp Pulse Resp BP Pulse Ox 97.9 F 63 18 136/68 96 05/03/18 04:00 05/03/18 04:00 05/03/18 04:00 05/03/18 04:00 05/03/18 04:00 - Medications Medications: Current Medications Acetaminophen (Tylenol 325mg Tab) 650 mg PO Q4 PRN PRN Reason: Pain, Mild (1-3) Last Admin: 04/30/18 11:54 Dose: 650 mg Ceftriaxone Sodium 1 gm/ (Sodium Chloride) 100 mls @ 100 mls/hr IVPB DAILY [facility] PRN Reason: Protocol Last Admin: 05/02/18 08:39 Dose: 100 mls/hr Metronidazole (Flagyl 500mg/100ml Ns) 100 mls @ 100 mls/hr IVPB Q8 JALEESA PRN Reason: Protocol Last Admin: 05/03/18 00:45 Dose: 100 mls/hr Levothyroxine Sodium (Synthroid) 25 mcg PO DAILY@0630 [facility] Last Admin: 05/03/18 06:06 Dose: 25 mcg Oxycodone HCl (Oxycodone Immediate Release Tab) 5 mg PO Q6 PRN PRN Reason: Pain, severe (8-10) Oxycodone HCl (Oxycodone Immediate Release Tab) 10 mg PO Q6 PRN PRN Reason: Pain, moderate (4-7) Last Admin: 05/03/18 00:44 Dose: 10 mg Pantoprazole Sodium (Protonix Inj) 40 mg IVP DAILY [facility] Last Admin: 05/02/18 08:39 Dose: 40 mg - Labs Labs: 05/02/18 05:50 05/02/18 05:50 PT 12.3 Seconds (9.8-13.1) 05/02/18 05:50 INR 1.1 05/02/18 05:50 APTT 32.4 Seconds (25.6-37.1) 05/02/18 05:50 - Constitutional Appears: Non-toxic, No Acute Distress - Head Exam Head Exam: ATRAUMATIC, NORMAL INSPECTION, NORMOCEPHALIC - Eye Exam Eye Exam: EOMI, Normal appearance - ENT Exam ENT Exam: Mucous Membranes Moist, Normal Exam - Neck Exam Neck Exam: Full ROM, Normal Inspection - Respiratory Exam Respiratory Exam: NORMAL BREATHING PATTERN - Cardiovascular Exam Cardiovascular Exam: REGULAR RHYTHM, +S1, +S2 - GI/Abdominal Exam GI & Abdominal Exam: Soft, Tenderness (mild, over surgical incisions). absent: Distended, Firm, Guarding Additional comments: Epigastric, supraumbilical, and 2 R flank incisions with glue in place. Supraumblical incision with slight ecchymoses. Tender to palpation over incision sites. - Extremities Exam Extremities Exam: Normal Inspection - Neurological Exam Neurological Exam: Alert, Awake, CN II-XII Intact, Oriented x3 - Psychiatric Exam Psychiatric exam: Normal Affect, Normal Mood - Skin Skin Exam: Dry, Intact, Normal Color, Warm Additional comments: Please see ab exam for skin findings Assessment and Plan - Assessment and Plan (Free Text) Assessment: 52M POD#1 s/p lap cholecystectomy Plan: Cont HHD Encourage IS use OOBTC Ambulate Pain control Cleared for d/c home from surgical standpoint Will AYAN attending Anna, PGY-2
--- NOTE | 2018-05-03 11:49 | CP.PCM.PN ---
Subjective - Date & Time of Evaluation Date of Evaluation: 05/03/18 Time of Evaluation: 11:50 - Subjective Subjective: S/P CHOLECYSTECTOMY STILL HAS NOT MOVED BOWELS AND C/O ABDOMINAL PAINS AND BLOATING Objective - Vital Signs/Intake and Output Vital Signs (last 24 hours): Temp Pulse Resp BP Pulse Ox 97.9 F 56 L 19 116/73 97 05/03/18 07:47 05/03/18 07:47 05/03/18 07:47 05/03/18 07:47 05/03/18 07:47 - Medications Medications: Current Medications Acetaminophen (Tylenol 325mg Tab) 650 mg PO Q4 PRN PRN Reason: Pain, Mild (1-3) Last Admin: 04/30/18 11:54 Dose: 650 mg Metronidazole (Flagyl 500mg/100ml Ns) 100 mls @ 100 mls/hr IVPB Q8 JALEESA PRN Reason: Protocol Last Admin: 05/03/18 09:17 Dose: 100 mls/hr Levothyroxine Sodium (Synthroid) 25 mcg PO DAILY@0630 [facility]S [facility]CLUDE 234 BEDS AT [facility] Last Admin: 05/03/18 06:06 Dose: 25 mcg Oxycodone HCl (Oxycodone Immediate Release Tab) 5 mg PO Q6 PRN PRN Reason: Pain, severe (8-10) Oxycodone HCl (Oxycodone Immediate Release Tab) 10 mg PO Q6 PRN PRN Reason: Pain, moderate (4-7) Last Admin: 05/03/18 09:15 Dose: 10 mg Pantoprazole Sodium (Protonix Inj) 40 mg IVP DAILY COUNTS INCLUDE 234 BEDS AT THE [facility] Last Admin: 05/03/18 09:16 Dose: 40 mg - Labs Labs: 05/02/18 05:50 05/02/18 05:50 PT 12.3 Seconds (9.8-13.1) 05/02/18 05:50 INR 1.1 05/02/18 05:50 APTT 32.4 Seconds (25.6-37.1) 05/02/18 05:50 - Constitutional Appears: In Acute Distress - Head Exam Head Exam: ATRAUMATIC, NORMAL INSPECTION, NORMOCEPHALIC - Eye Exam Eye Exam: EOMI, Normal appearance, PERRL Pupil Exam: NORMAL ACCOMODATION, PERRL - ENT Exam ENT Exam: Mucous Membranes Moist, Normal Exam - Neck Exam Neck Exam: Full ROM, Normal Inspection. absent: Lymphadenopathy - Respiratory Exam Respiratory Exam: Clear to Ausculation Bilateral, NORMAL BREATHING PATTERN - Cardiovascular Exam Cardiovascular Exam: REGULAR RHYTHM, +S1, +S2. absent: Murmur - GI/Abdominal Exam GI & Abdominal Exam: Distended, Soft, Tenderness, Normal Bowel Sounds - Rectal Exam Rectal Exam: NORMAL INSPECTION - Extremities Exam Extremities Exam: Full ROM, Normal Capillary Refill, Normal Inspection. absent : Joint Swelling, Pedal Edema - Back Exam Back Exam: NORMAL INSPECTION - Neurological Exam Neurological Exam: Alert, Awake, CN II-XII Intact, Normal Gait, Oriented x3 - Psychiatric Exam Psychiatric exam: Normal Affect, Normal Mood - Skin Skin Exam: Dry, Intact, Normal Color, Warm Assessment and Plan - Assessment and Plan (Free Text) Assessment: S/P CHOLECYSTECTOMY DIVERTICULAR DZ THYROID DZ Plan: CONTINUE IV ANTIBIOTICS AND ANALGESICS ADVANCE DIET DISCHARGE IN AM IF STABLE
[2018-05-03] MEDS ORDERED: oxyCODONE 5 mg Immediate Release Tab PO PRN (23:17)
[2018-05-03] MEDS ORDERED: oxyCODONE 10 mg Immediate Release Tab PO PRN (23:18)
[2018-05-03 23:41] VITALS: O2SAT 96
[2018-05-04] MEDS: metroNIDAZOLE 500mg/100ml NS 100 ML IVPB SCH ×2 (00:10→09:12)
[2018-05-04] MEDS: Levothyroxine 25 MCG TAB PO SCH (06:15)
[2018-05-04 07:41] VITALS: BP 114/76; PULSE 58; RESP 19; TEMP 97.5
--- NOTE | 2018-05-04 07:55 | CP.PCM.PN ---
Subjective - Date & Time of Evaluation Date of Evaluation: 05/04/18 Time of Evaluation: 07:53 - Subjective Subjective: General surgery progress note for Dr. Matthew Castillo, PGY-2 Pt S & E at bedside at 0650 Pt reports abdominal pain overnight requiring pain medications. Tolerating a diet, ambulating. Voiding. Still no BM, but passing gas. Denies N & V, F & C , other complaints. Objective - Vital Signs/Intake and Output Vital Signs (last 24 hours): Temp Pulse Resp BP Pulse Ox 97.5 F L 58 L 19 114/76 96 05/04/18 07:40 05/04/18 07:40 05/04/18 07:40 05/04/18 07:40 05/04/18 07:40 - Medications Medications: Current Medications Acetaminophen (Tylenol 325mg Tab) 650 mg PO Q4 PRN PRN Reason: Pain, Mild (1-3) Last Admin: 04/30/18 11:54 Dose: 650 mg Metronidazole (Flagyl 500mg/100ml Ns) 100 mls @ 100 mls/hr IVPB Q8 JALEESA PRN Reason: Protocol Last Admin: 05/04/18 00:10 Dose: 100 mls/hr Levothyroxine Sodium (Synthroid) 25 mcg PO DAILY@0630 [facility] Last Admin: 05/04/18 06:15 Dose: 25 mcg Oxycodone HCl (Oxycodone Immediate Release Tab) 5 mg PO Q6 PRN PRN Reason: Pain, moderate (4-7) Oxycodone HCl (Oxycodone Immediate Release Tab) 10 mg PO Q6 PRN PRN Reason: Pain, severe (8-10) Last Admin: 05/03/18 23:28 Dose: 10 mg Pantoprazole Sodium (Protonix Inj) 40 mg IVP DAILY [facility] Last Admin: 05/03/18 09:16 Dose: 40 mg Senna/Docusate Sodium (Senokot S 50 Mg-8.6 Mg) 1 tab PO DAILY [facility] - Labs Labs: 05/02/18 05:50 05/02/18 05:50 PT 12.3 Seconds (9.8-13.1) 05/02/18 05:50 INR 1.1 05/02/18 05:50 APTT 32.4 Seconds (25.6-37.1) 05/02/18 05:50 - Constitutional Appears: Non-toxic, No Acute Distress - Head Exam Head Exam: ATRAUMATIC, NORMAL INSPECTION, NORMOCEPHALIC - Eye Exam Eye Exam: EOMI, Normal appearance - ENT Exam ENT Exam: Mucous Membranes Moist, Normal Exam - Neck Exam Neck Exam: Full ROM, Normal Inspection - Respiratory Exam Respiratory Exam: Clear to Ausculation Bilateral, NORMAL BREATHING PATTERN - Cardiovascular Exam Cardiovascular Exam: REGULAR RHYTHM, +S1, +S2 - GI/Abdominal Exam GI & Abdominal Exam: Soft, Tenderness (over incision sites). absent: Firm, Guarding, Rigid - Extremities Exam Extremities Exam: Normal Inspection - Neurological Exam Neurological Exam: Alert, Awake, CN II-XII Intact, Oriented x3 - Psychiatric Exam Psychiatric exam: Normal Affect, Normal Mood - Skin Skin Exam: Dry, Intact, Warm. absent: Normal Color (ecchymoses over umbilical incision) Additional comments: glue over abdominal incision sites- no induration or fluctuance Assessment and Plan - Assessment and Plan (Free Text) Assessment: 52M POD#2 s/p lap cholecystectomy Plan: Cont HHD Encourage IS use Ambulate OOBTC Pain control PRN Started on bowel regimen Cleared for d/c home from surgical standpoint Will AYAN attending Anna, PGY-2
[2018-05-04] MEDS ORDERED: Docusate-Senna 50 mg-8.6 mg Tab PO SCH (09:00)
--- NOTE | 2018-05-04 10:40 | CP.PCM.DIS ---
Provider - Provider Date of Admission: 04/29/18 13:16 Attending physician: Duke Funes MD Primary care physician: Dc Bynum MD Time Spent in preparation of Discharge (in minutes): 30 Diagnosis - Discharge Diagnosis (1) Hypothyroidism Status: Acute (2) Cholecystitis Status: Acute (3) Diverticulitis Status: Acute Hospital Course - Lab Results Lab Results: Micro Results 04/29/18 14:00 Blood-Venous Blood Culture - Preliminary NO GROWTH AFTER 4 DAYS 04/30/18 11:10 Stool Stool Culture - Final NO SALMONELLA, SHIGELLA OR CAMPYLOBACTER ISOLATED. Most Recent Lab Values WBC 5.5 K/uL (4.8-10.8) 05/02/18 05:50 RBC 5.09 Mil/uL (4.40-5.90) 05/02/18 05:50 Hgb 15.0 g/dL (12.0-18.0) 05/02/18 05:50 Hct 43.8 % (35.0-51.0) 05/02/18 05:50 MCV 86.0 fl (80.0-94.0) 05/02/18 05:50 MCH 29.5 pg (27.0-31.0) 05/02/18 05:50 MCHC 34.3 g/dL (33.0-37.0) 05/02/18 05:50 RDW 12.9 % (11.5-14.5) 05/02/18 05:50 Plt Count 197 K/uL (130-400) 05/02/18 05:50 MPV 7.2 fl (7.2-11.7) 04/29/18 05:32 Neut % (Auto) 62.9 % (50.0-75.0) 04/29/18 05:32 Lymph % (Auto) 24.9 % (20.0-40.0) 04/29/18 05:32 Mckenzie % (Auto) 8.1 % (0.0-10.0) 04/29/18 05:32 Eos % (Auto) 3.4 % (0.0-4.0) 04/29/18 05:32 Baso % (Auto) 0.7 % (0.0-2.0) 04/29/18 05:32 Neut # (Auto) 4.5 K/uL (1.8-7.0) 04/29/18 05:32 Lymph # (Auto) 1.8 K/uL (1.0-4.3) 04/29/18 05:32 Mckenzie # (Auto) 0.6 K/uL (0.0-0.8) 04/29/18 05:32 Eos # (Auto) 0.2 K/uL (0.0-0.7) 04/29/18 05:32 Baso # (Auto) 0.0 K/uL (0.0-0.2) 04/29/18 05:32 PT 12.3 Seconds (9.8-13.1) 05/02/18 05:50 INR 1.1 05/02/18 05:50 APTT 32.4 Seconds (25.6-37.1) 05/02/18 05:50 pCO2 37 mm/Hg (35-45) 04/29/18 15:59 pO2 76 mm/Hg (80-100) L 04/29/18 15:59 HCO3 24.2 mmol/L (21-28) 04/29/18 15:59 ABG pH 7.41 (7.35-7.45) 04/29/18 15:59 ABG Total CO2 24.6 mmol/L (22-28) 04/29/18 15:59 ABG O2 Saturation 98.8 % (95-98) H 04/29/18 15:59 ABG Base Excess -0.8 mmol/L (-2.0-3.0) 04/29/18 15:59 Steven Test Yes 04/29/18 15:59 ABG Potassium 3.9 mmol/L (3.6-5.2) 04/29/18 15:59 VBG pH 7.15 (7.32-7.43) L* 04/29/18 12:48 VBG pCO2 80 mmHg (40-60) H* 04/29/18 12:48 VBG HCO3 19.8 mmol/L 04/29/18 12:48 VBG Total CO2 30.4 mmol/L (22-28) H 04/29/18 12:48 VBG O2 Sat (Calc) 32.1 % (40-65) L 04/29/18 12:48 VBG Base Excess -3.7 mmol/L (0.0-2.0) L 04/29/18 12:48 VBG Potassium > 20.0 mmol/L (3.6-5.2) H* 04/29/18 12:48 A-a O2 Difference 27.0 mm/Hg 04/29/18 15:59 Sodium 135.0 mmol/L (132-148) 04/29/18 15:59 Chloride 105.0 mmol/L (98-107) 04/29/18 15:59 Glucose 118 mg/dL (75-110) H 04/29/18 15:59 Lactate 1.2 mmol/L (0.7-2.1) 04/29/18 15:59 FiO2 21.0 % 04/29/18 15:59 Blood Gas Comments Vbg 04/29/18 12:48 Crit Value Called To Anny navas r.n. 04/29/18 12:48 Crit Value Called By Cynthia 04/29/18 12:48 Crit Value Read Back Y 04/29/18 12:48 Blood Gas Notified Time 1412 04/29/18 12:48 Sodium 139 mmol/l (132-148) 05/02/18 05:50 Potassium 4.0 MMOL/L (3.6-5.0) 05/02/18 05:50 Chloride 103 mmol/L (98-107) 05/02/18 05:50 Carbon Dioxide 28 mmol/L (22-30) 05/02/18 05:50 Anion Gap 12 (10-20) 05/02/18 05:50 BUN 10 mg/dl (9-20) 05/02/18 05:50 Creatinine 1.0 mg/dl (0.8-1.5) 05/02/18 05:50 Est GFR ( Amer) > 60 05/02/18 05:50 Est GFR (Non-Af Amer) > 60 05/02/18 05:50 Random Glucose 118 mg/dL (75-110) H 05/02/18 05:50 Lactic Acid 1.5 MMOL/L (0.7-2.1) 04/29/18 05:43 Calcium 9.1 mg/dL (8.4-10.2) 05/02/18 05:50 Phosphorus 3.0 mg/dl (2.5-4.5) 04/30/18 19:50 Magnesium 2.0 MG/DL (1.6-2.3) 04/30/18 19:50 Total Bilirubin 1.2 mg/dl (0.2-1.3) 05/02/18 05:50 AST 51 U/L (17-59) 05/02/18 05:50 ALT 73 U/L (21-72) H D 05/02/18 05:50 Alkaline Phosphatase 83 U/L (38-126) 05/02/18 05:50 Total Protein 7.1 G/DL (6.3-8.2) 05/02/18 05:50 Albumin 3.9 g/dL (3.5-5.0) 05/02/18 05:50 Globulin 3.2 gm/dL (2.2-3.9) 05/02/18 05:50 Albumin/Globulin Ratio 1.2 (1.0-2.1) 05/02/18 05:50 Lipase 68 U/L (23-300) 04/29/18 05:32 Arterial Blood Potassium 3.9 mmol/L (3.6-5.2) 04/29/18 15:59 Venous Blood Potassium > 20.0 mmol/L (3.6-5.2) H* 04/29/18 12:48 Urine Color Yellow (YELLOW) 04/29/18 08:15 Urine Clarity Clear (Clear) 04/29/18 08:15 Urine pH 6.0 (5.0-8.0) 04/29/18 08:15 Ur Specific Lyons 1.012 (1.003-1.030) 04/29/18 08:15 Urine Protein Negative mg/dL (NEGATIVE) 04/29/18 08:15 Urine Glucose (UA) Neg mg/dL (Normal) 04/29/18 08:15 Urine Ketones Negative mg/dL (NEGATIVE) 04/29/18 08:15 Urine Blood Negative (NEGATIVE) 04/29/18 08:15 Urine Nitrate Negative (NEGATIVE) 04/29/18 08:15 Urine Bilirubin Negative (NEGATIVE) 04/29/18 08:15 Urine Urobilinogen 0.2-1.0 mg/dL (0.2-1.0) 04/29/18 08:15 Ur Leukocyte Esterase Neg Michael/uL (Negative) 04/29/18 08:15 Urine RBC (Auto) 1 /hpf (0-3) 04/29/18 08:15 Urine Microscopic WBC < 1 /hpf (0-5) 04/29/18 08:15 Ur Squamous Epith Cells < 1 /hpf (0-5) 04/29/18 08:15 - Hospital Course Hospital Course: PASSING GAS ABDOMINAL PAIN RESOLVED Discharge Exam - Head Exam Head Exam: ATRAUMATIC, NORMAL INSPECTION, NORMOCEPHALIC - Eye Exam Eye Exam: EOMI, Normal appearance, PERRL Pupil Exam: NORMAL ACCOMODATION, PERRL - GI/Abdominal Exam GI & Abdominal Exam: Normal Bowel Sounds Additional comments: SURGICAL SITE CLEAN AND HEALED - Rectal Exam Rectal Exam: NORMAL INSPECTION - Neurological Exam Neurological exam: Alert, CN II-XII Intact, Normal Gait, Oriented x3, Reflexes Normal - Psychiatric Exam Psychiatric exam: Normal Affect, Normal Mood - Skin Skin Exam: Dry, Intact, Normal Color, Warm Discharge Plan - Follow Up Plan Condition: FAIR Disposition: HOME/ ROUTINE Patient education suggested?: Yes Instructions: High Fiber Diet, Cholecystectomy, Laparoscopic Surgery, Gallstones (DC) Additional Instructions: Ok to resume normal diet OK to shower- you have special glue over your surgical incisions, this will fall off on it's own Do not take a bath, sit in a hot tube or go swimming No heavy lifting or core exercises for 4-6 weeks Please follow up with Dr. Taylor in 1-2 weeks in his office Referrals: Dc Bynum MD [Primary Care Provider] - Jas Pope MD [Staff Provider] - Wagner Taylor MD [Staff Provider] -
--- NOTE | 2018-05-05 08:23 | OP ---
Copied To: Haley Castillo DO Attending MD: Wagner Taylor MD PROCEDURE DATE: 05/02/2018 SURGEON: Wagner Taylor MD STRANDING SUPERVISOR: Roberto Amato DO, PGY-4 and Haley Castillo DO, PGY-2 ANESTHESIOLOGIST: Valerio Christy MD ANESTHESIA: General endotracheal. PREOPERATIVE DIAGNOSES: Biliary dyskinesia and cholelithiasis. POSTOPERATIVE DIAGNOSIS: Cholelithiasis. FINDINGS: Cholelithiasis in gallbladder. SPECIMEN: Gallbladder. ESTIMATED BLOOD LOSS: 20 mL. DRAINS: None. COMPLICATIONS: None. DESCRIPTION OF PROCEDURE: Mr. Devin Hernandez, is a 52-year-old male that presented to the hospital on 04/29/2018 due to 12 to 2 months of cramping abdominal pain with recurrent diarrhea resistant to oral antibiotic treatment. The patient had been recently here for colonoscopy one day prior to evaluation with increasing abdominal bloating. In the ED, the patient had abdominal and pelvis CAT scan that was positive for distended gallbladder with wall thickening and mild pericholecystic fluid without evidence of gallstones and normal lab values. The patient was admitted for monitoring with subsequent HIDA scan that was positive for biliary dyskinesia and occlusion of the cystic duct. It was determined that Mr. Hernandez would benefit from cholecystectomy laparoscopically. The patient was placed on the operative table in the supine position. General anesthesia was induced. A time-out was completed verifying the correct patient, procedure, site, and positioning. Prior to the start of the procedure, preoperative antibiotics had been administered. The abdomen was prepped and draped in the usual sterile fashion. A supraumbilical incision was made and Veress needle was introduced with insufflation of the abdomen. A Visiport was introduced into the supraumbilical incision with visualization of layers as Visiport was introduced. Camera was introduced into the abdominal cavity and subsequent epigastric incision was made and a 11-mm trocar was introduced into the incision. Two 5 mm trocar incisions were placed in the right mid axillary and right flank position with 5-mm trocars introduced into each site. The gallbladder was visualized under the liver. Traction was then placed on the fundus of the gallbladder. The peritoneum was taken down off of the gallbladder. The cystic duct and the cystic artery were dissected out and identified starting at the fundus and continuing downward to the cystic duct and cystic artery. The peritoneum overlying was incised, and the gallbladder was dissected off the liver bed. The cystic duct and the cystic artery were triply clipped and divided and the gallbladder was dissected off of the cystic plate using electrocautery. Hemostasis was checked and achieved. The hepatoduodenal ligament was inspected and found to be intact without palpable abnormalities. The intraabdominal cavity was inspected. No foreign bodies were noted. The infraumbilical incision was closed using a ____ suture in a [id number] configuration. All skin was closed using 4-0 Monocryl. Dermabond was applied to all surgical sites with good hemostasis. At the end of the procedure, all counts were declared to be correct for needles and instruments. The patient was extubated intraoperatively. The patient tolerated the procedure well and was taken to the post anesthesia care unit in stable condition. Haley Castillo DO Wagner Taylor MD
== END 2018-05-04 14:06 | disposition home or self-care (01) | DRG 494 ==
LOC: H.ER 03:49 → H.ERHOLD 13:16 → OBSVTOIN 13:16 → H.MEDSURG1 16:32
PROVIDERS: ADMIT Internal Medicine Pulmonary Disease; ATTEND Internal Medicine Pulmonary Disease
PROC: 0FT44ZZ Resection of Gallbladder, Percutaneous Endoscopic Approach (ICD-10-PCS; principal; 2018-05-02 11:15)
DX: K80.01 Calculus of gallbladder with acute cholecystitis with obstruction (principal); K40.90 Unilateral inguinal hernia, without obstruction or gangrene, not specified as recurrent; K44.9 Diaphragmatic hernia without obstruction or gangrene; R16.2 Hepatomegaly with splenomegaly, not elsewhere classified; E03.9 Hypothyroidism, unspecified; E78.00 Pure hypercholesterolemia, unspecified; E78.5 Hyperlipidemia, unspecified; K52.9 Noninfective gastroenteritis and colitis, unspecified; K57.90 Diverticulosis of intestine, part unspecified, without perforation or abscess without bleeding